=== PATIENT | male | born 1945 | race American Indian/Alaskan Native ===

== ENCOUNTER 2022-05-25 15:27 | Inpatient (IN) | payer SELFPAY ==
[~2022-05-25 15:27] MED LIST: SUCCINYLCHOLINE CHLORIDE 200 MG/10 ML INJ MDV ONE
[2022-05-25] MEDS ORDERED: HEPARIN 10,000 UNITS/10 ML VIAL ONE (15:38)
[2022-05-25] MEDS ORDERED: HEPARIN/NS 5000 UNIT/500ML 500 ML IR ONE (15:38)
[2022-05-25] MEDS ORDERED: VERAPAMIL 5 MG/2 ML INJ ONE (15:38)
[2022-05-25] MEDS ORDERED: LIDOCAINE (2%) 20 MG/1 ML VIAL 20 ML MDV INFILTRATI ONE (15:39)
[2022-05-25] MEDS ORDERED: NITROGLYCERIN SYRINGE 0 ML ONE (15:39)
--- NOTE | 2022-05-25 16:09 | XRay Report ---
CHEST 1 VIEW INDICATION / CLINICAL INFORMATION: Chest Pain STUDY TIME: 155 COMPARISON: None available. FINDINGS: SUPPORT DEVICES: None HEART / MEDIASTINUM: No significant abnormality. LUNGS / PLEURA: Very poor degree of inspiration. Calcified granuloma on the right. Mild linear atelec tasis versus scarring bilaterally, more on the right. No definite pneumonic infiltrates or effusions. No pneumothorax. ADDITIONAL FINDINGS: No significant additional findings. Signer Name: John Laguerre MD Signed: 05/25/2022 4:05 PM Workstation Name: [id number]
--- NOTE | 2022-05-25 16:18 | Consultation ---
History of Present Illness Consult date: 05/25/22 Requesting physician: TYSON JONES Consult reason: chest pain History of present illness: Patient is 77-year-old male with a reported past medical history of osteomyeloma(reportedly on Eliquis as an outpatient) who is brought in to the ED due to complaint of chest pain/AMS x3 hours. History taken from EMS due to patient mental status at time of interview. Per EMS patient woke up at 3 AM this morning stating he was not feeling well. Per report 3 hours ago patient suddenly developed crushing chest pain and then developed altered mental status. EMS was notified and patient transported to [facility] for further evaluation. Per EMS patient was having PVCs and bigeminy on monitor in route to hospital. Rhythm strip was transferred to the hospital with concern for STEMI. EKG was reviewed by on-call brand inspector and determined not to be STEMI. At time of interview patient remains with AMS and unable to obtain a ROS. Patient is previously unknown to our practice. Cardiology is consulted for chest pain. Past History Past Medical History: other (Unable to obtain, reported patient has history of osteomyeloma) Past Surgical History: Other (Unable to obtain) Social history: other (Unable to obtain) Family history: other (Unable to obtain) Medications and Allergies Allergies Allergy/AdvReac Type Severity Reaction Status Date / Time No Known Allergies Allergy Verified 05/25/22 16:04 Review of Systems ROS unobtainable: due to mental status Physical Examination Vital Signs Temp Pulse Resp Pulse Ox 98.6 F 66 16 93 05/25/22 16:02 05/25/22 16:02 05/25/22 16:02 05/25/22 16:02 General appearance: other (Altered mental status) Neck: Positive: trachea midline Cardiac: Positive: Reg Rate and Rhythm Lungs: Positive: Decreased Breath Sounds Neuro: Positive: Other (Unable to assess) Abdomen: Positive: Soft Skin: Positive: Other (Lesion on right lower extremity) Extremities: Absent: edema Results - Imaging and Cardiology Echo: pending EKG interpretations - Telemetry EKG Rhythm: Sinus Rhythm - EKG Sinus rhythms and dysrhythmias: sinus rhythm AV and intraventricular conduction: right bundle branch block Assessment and Plan Patient is 77-year-old male with a reported past medical history of osteomyeloma(reportedly on Eliquis as an outpatient) who is brought in to the ED due to complaint of chest pain/AMS x3 hours. AMS Chest pain/ACS? H/o Osteomyloma (anticoagulated on Eliquis?) Plan: EKG shows sinus rhythm with right bundle branch block no acute ischemic change. Troponins pending Rhythm strip sent by EMS and EKG done at [facility] was determined not to be a STEMI. No indication for immediate cardiac cath Further recommendations to follow pending hospital course and ED work up. Patient tentatively to be n.p.o. after midnight in case there is indication for cardiac intervention Echo pending Patient seen in conjunction with Dr. Hicks who agrees with plan of care - Patient Problems (1) AMS (altered mental status) Status: Acute (2) Chest pain Status: Acute
[2022-05-25] MEDS ORDERED: SODIUM CHLORIDE 0.9% 1000 ML 1,000 ML IV ONE ×3 (16:31→16:52)
[2022-05-25] MEDS ORDERED: SODIUM CHLORIDE 0.9% 1000 ML 2,000 ML ONE (16:32)
[2022-05-25 16:33] LABS: Calcium 9.2 mg/dL (8.4-10.2)
[2022-05-25 16:36] LABS: Mean Corpuscular HGB Conc 31 % (32-34); Platelet Count 125 K/mm3 (140-440); Red Blood Count 3.46 M/mm3 (3.65-5.03); Red Cell Distribution Width 17.9 % (13.2-15.2)
[2022-05-25 16:58] LABS: Hematocrit 38.4 % (35.5-45.6); Hemoglobin 11.8 gm/dl (11.8-15.2); Mean Corpuscular Volume 111 fl (84-94)
[2022-05-25 16:59] LABS: INR 1.52 (0.87-1.13)
[2022-05-25 17:00] LABS: Partial Thromboplastin Time 36.1 Sec. (24.2-36.6)
[2022-05-25] MEDS ORDERED: POTASSIUM CHLORIDE 10 MEQ 10 MEQ/100 ML BAG IV SCH (17:00)
[2022-05-25 17:49] LABS: Chol/HDL Ratio 1.91 %
[2022-05-25 17:53] LABS: Band Neutrophils # (Manual) 0.3 K/mm3; Basophils % (Manual) 0 % (0.0-1.8); Macrocytosis 2+; Myelocytes # (Manual) 0.3 K/mm3; Platelet Estimate Consistent w Auto; Total Cells Counted 100
--- NOTE | 2022-05-25 18:03 | Emergency Department Report ---
ED Chest Pain HPI - General Chief Complaint: Chest Pain Stated Complaint: STEMI Time Seen by Provider: 05/25/22 15:40 Source: EMS Mode of arrival: Stretcher Limitations: Altered Mental Status, Physical Limitation - History of Present Illness Initial Comments: Patient is a 77-year-old male brought in by EMS for suspected code STEMI. He reportedly woke up this morning not feeling well and later developed chest pain proximately 3 hours prior to arrival. Family states patient went unresponsive and defecated on himself. EMS noted ST elevations in the inferior leads concerning for STEMI. No medications given due to patient being obtunded. Severity scale (0 -10): 0 - Related Data Allergies Allergy/AdvReac Type Severity Reaction Status Date / Time No Known Allergies Allergy Verified 05/25/22 16:19 Heart Score - HEART Score History: Slightly suspicious EKG: Non-specific Age: > 65 Risk factors: 1-2 risk factors Troponin: 1-3x normal limit HEART Score: 5 - EKG Read Time Time EKG Completed: 12:00 (Unable to locate EKG. Times are not accurate) EKG Read Time: 12:05 (Unable to locate EKG. Times are not accurate) - Critical Actions Critical Actions: 4-6 pts:12-16.6% risk of adverse cardiac event. Should be admitted ED Review of Systems ROS: Stated complaint: STEMI Other details as noted in HPI Comment: Unobtainable due to pts medical conditions ED Physical Exam - General Limitations: Altered Mental Status, Physical Limitation General appearance: obtunded - Head Head exam: Present: atraumatic, normocephalic - Neck Neck exam: Present: normal inspection - Respiratory Respiratory exam: Present: normal lung sounds bilaterally. Absent: respiratory distress - Cardiovascular Cardiovascular Exam: Present: regular rate, normal rhythm, normal heart sounds - GI/Abdominal GI/Abdominal exam: Present: soft. Absent: distended - Neurological Exam Neurological exam: Present: altered - Skin Skin exam: Present: warm, dry, intact, normal color ED Course Vital Signs 05/25/22 05/25/22 05/25/22 15:33 15:46 16:00 Temperature Pulse Rate 72 77 77 Respiratory 18 22 17 Rate Blood Pressure 91/72 91/72 O2 Sat by Pulse Oximetry 05/25/22 05/25/22 16:02 16:16 Temperature 98.6 F Pulse Rate 66 67 Respiratory 16 22 Rate Blood Pressure 56/31 O2 Sat by Pulse 93 73 L Oximetry ED Medical Decision Making - Lab Data Result diagrams: 05/25/22 15:55 05/25/22 15:55 - EKG Data -: EKG Interpreted by Me EKG shows normal: sinus rhythm Rate: normal - EKG Data 05/25/22 18:01 Right bundle branch block - Radiology Data Radiology results: report reviewed Calcified granuloma on the right. Mild scarring versus atelectasis noted. No acute findings otherwise. - Medical Decision Making Laboratories are significant for troponin of 2.3, D-dimer 879, creatinine 2.7, GFR 23. Patient was moderately hypotensive on arrival and was started on IV fluids. Differential diagnosis of chest pain includes but not limited to NSTEMI, aortic dissection, AAA, PE. I discussed these concerns with and explained to her the risks versus benefits of administering IV contrast in setting of acute kidney injury to identify potentially life-threatening disease processes as mentioned above. consents to CTA. No acute PE, AAA or dissection noted on CTA chest abdomen or pelvis. Right femoral artery occlusion noted. He is currently on a Levophed infusion for refractory hypotension. Will admit to hospitalist, Critical care attestation.: If time is entered above; I have spent that time in minutes in the direct care of this critically ill patient, excluding procedure time. ED Disposition Clinical Impression: Altered mental status, Occlusion of right femoral artery, Metabolic acidosis, Non-ST elevation PR (NSTEMI) Disposition: ADMITTED INPATIENT Is pt being admited?: Yes Condition: Stable
[2022-05-25] MEDS ORDERED: KETAMINE 500 MG/5 ML VIAL MDV IV ONE (19:15)
--- NOTE | 2022-05-25 20:26 | Cat Scan Report ---
CTA CHEST, ABDOMEN, AND PELVIS WITHOUT AND WITH CONTRAST INDICATION / CLINICAL INFORMATION: Rule out dissection, PE, AAA 86 ml of [id number] . TECHNIQUE: Axial CT images were obtained through the chest, abdomen, and pelvis before and after injection of IV contrast. 3 plane MIP and/or 3D reconstructions were produced. All CT scans at this location are per formed using CT dose reduction for ALARA by means of automated exposure control. COMPARISON: None available. FINDINGS: Chest: The thoracic aorta appears normal in size without dissection. Mild atherosclerotic change in the desc ending thoracic aorta. Visualized pulmonary arteries appear normal. Increased interstitial prominence with interstitial opacities and densities in bilateral lungs. A few these areas are mildly nodular/r ounded. Calcified nodule in the right lung is noted. No dominant mediastinal or hilar adenopathy. No evidence for PTE. Abdomen pelvis: Mild atherosclerotic change at the origin of the celiac and celiac branches are patent. Atherosclerot ic change with some plaque is seen in the SMA however this is patent. Atherosclerotic change in bilat eral renal arteries. EMY is patent. Atherosclerotic change of lower abdominal aorta with common iliac artery calcifications and mild narrowing. After rn maternal child change throughout the internal/external iliac vessels. There is occlusion of the right proximal femoral artery. No dissection. Liver, spleen, adrenal glands, pancreas appears normal. Gallbladder appears normal. Slightly complex left renal cyst. Right renal cyst is noted. There is thickening within the sigmoid colon and into the rectum. IMPRESSION: 1. No evidence for PTE. Extensive atherosclerotic change throughout the abdominal aorta and branches as described above. 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 No dissection is seen. 2. Thickening of the sigmoid colon into the rectum. Findings could represent colitis, nonspecific. Cl inical correlation and follow-up is recommended. Follow-up colonoscopy recommended. 3. Bilateral renal cysts. Slightly complex left renal cyst. 4. Diffuse osteopenia with mild bony changes throughout. 5. Increased interstitial prominence with interstitial opacities in bilateral lungs. Follow-up recomm ended. Lower lung atelectasis. Signer Name: Khanh Man MD Signed: 05/25/2022 8:22 PM Workstation Name: [id number]
--- NOTE | 2022-05-25 20:26 | Cat Scan Report ---
CTA CHEST, ABDOMEN, AND PELVIS WITHOUT AND WITH CONTRAST INDICATION / CLINICAL INFORMATION: Rule out dissection, PE, AAA 86 ml of [id number] . TECHNIQUE: Axial CT images were obtained through the chest, abdomen, and pelvis before and after injection of IV contrast. 3 plane MIP and/or 3D reconstructions were produced. All CT scans at this location are per formed using CT dose reduction for ALARA by means of automated exposure control. COMPARISON: None available. FINDINGS: Chest: The thoracic aorta appears normal in size without dissection. Mild atherosclerotic change in the desc ending thoracic aorta. Visualized pulmonary arteries appear normal. Increased interstitial prominence with interstitial opacities and densities in bilateral lungs. A few these areas are mildly nodular/r ounded. Calcified nodule in the right lung is noted. No dominant mediastinal or hilar adenopathy. No evidence for PTE. Abdomen pelvis: Mild atherosclerotic change at the origin of the celiac and celiac branches are patent. Atherosclerot ic change with some plaque is seen in the SMA however this is patent. Atherosclerotic change in bilat eral renal arteries. EMY is patent. Atherosclerotic change of lower abdominal aorta with common iliac artery calcifications and mild narrowing. After oyster culler change throughout the internal/external iliac vessels. There is occlusion of the right proximal femoral artery. No dissection. Liver, spleen, adrenal glands, pancreas appears normal. Gallbladder appears normal. Slightly complex left renal cyst. Right renal cyst is noted. There is thickening within the sigmoid colon and into the rectum. IMPRESSION: 1. No evidence for PTE. Extensive atherosclerotic change throughout the abdominal aorta and branches as described above. 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 No dissection is seen. 2. Thickening of the sigmoid colon into the rectum. Findings could represent colitis, nonspecific. Cl inical correlation and follow-up is recommended. Follow-up colonoscopy recommended. 3. Bilateral renal cysts. Slightly complex left renal cyst. 4. Diffuse osteopenia with mild bony changes throughout. 5. Increased interstitial prominence with interstitial opacities in bilateral lungs. Follow-up recomm ended. Lower lung atelectasis. Signer Name: Khanh Man MD Signed: 05/25/2022 8:22 PM Workstation Name: [id number]
[2022-05-25] MEDS ORDERED: PIPERACILLIN/TAZOBACTAM 3.375 3.375 GM/50 ML BAG IV ONE (20:40)
--- NOTE | 2022-05-25 20:43 | Cat Scan Report ---
CT head/brain wo con INDICATION / CLINICAL INFORMATION: 77 years Male; AMS. TECHNIQUE: Routine CT head without contrast. All CT scans at this location are performed using CT dos e reduction for ALARA by means of automated exposure control. COMPARISON: None. FINDINGS: BRAIN / INTRACRANIAL CONTENTS: The motion significantly degrades the image quality despite multiple r epeat imaging. There is an septal malacia involving right frontal lobe most consistent with old infar ct at. This mild cerebral atrophy. The ventricular system appears correspondingly appropriate in size and configuration. There is no gross CT evidence of acute intracranial hemorrhage or significant mas s effect. ORBITS: No significant abnormality of visualized orbits. SINUSES / MASTOIDS: No significant abnormality in the visualized paranasal sinuses or mastoid air ronaldo ls. CRANIOCERVICAL JUNCTION: No significant abnormality. ADDITIONAL FINDINGS: None. IMPRESSION: 1. The study is significantly limited by motion. However, there is encephalomalacia involving right f rontal lobe most consistent with old infarct. 2. There is no gross CT evidence of acute intracranial hemorrhage. Signer Name: Timo Baez MD Signed: 05/25/2022 8:38 PM Workstation Name: [id number]
[2022-05-25] MEDS ORDERED: INSULIN REGULAR, HUMAN 100 UNITS/1 ML IV ONE (20:49)
[2022-05-25] MEDS ORDERED: DEXTROSE 50% IN WATER (25GM) 50 ML SYRINGE IV PRN (21:25)
[2022-05-25] MEDS ORDERED: SODIUM CHLORIDE 0.9% 1000 ML 1,000 ML ONE (21:32)
[2022-05-25] MEDS: NORepinephrine/NS 8 MG-250 ML 8 MG/250 ML INFUS..BTL IV SCH (21:38)
[2022-05-25] MEDS ORDERED: ACETAMINOPHEN 650 MG RECT SUPP PR PRN (21:45)
[2022-05-25] MEDS ORDERED: MORPHINE 4 MG/1 ML INJ IV PRN ×2 (21:45)
[2022-05-25] MEDS ORDERED: MORPHINE 2 MG/1 ML INJ IV PRN (21:45)
[2022-05-25] MEDS ORDERED: ONDANSETRON 4 MG/2 ML INJ IV PRN (21:45)
[2022-05-25] MEDS ORDERED: traMADol 50 MG TAB PO PRN (21:45)
[2022-05-25] MEDS ORDERED: ACETAMINOPHEN 325 MG TAB PO PRN (21:45)
[2022-05-25] MEDS ORDERED: HEPARIN 10,000 UNITS/10 ML VIAL IV PRN (21:45)
[2022-05-25] MEDS ORDERED: HEPARIN 10,000 UNITS/10 ML VIAL IV ONE ×2 (21:45→22:10)
[2022-05-25] MEDS ORDERED: SODIUM CHLORIDE 0.9% 1000 ML 1,000 ML IV SCH (21:45)
[2022-05-25] MEDS ORDERED: MAGNESIUM HYDROXIDE (MOM) ORAL LIQD UDC PO PRN (21:45)
[2022-05-25] MEDS ORDERED: NITROGLYCERIN 0.4 MG TAB SUBL SL PRN (21:45)
[2022-05-25] MEDS ORDERED: HEPARIN/ 0.45% NACL DRIP 25,000 UNIT/500 ML BAG IV SCH (22:00)
[2022-05-25] MEDS: INSULIN REGULAR, HUMAN 100 UNITS in SODIUM CHLORIDE 0.9% 99 ML IV SCH (22:04)
--- NOTE | 2022-05-25 22:06 | History and Physical Report ---
History of Present Illness Date of examination: 05/25/22 Date of admission: 05/25/2022 Chief complaint: Chest Pain History of present illness: 27-year-old male with unknown past medical history brought in by EMS today with complaints of chest pain about 3 hours prior to arrival in the emergency room. Family indicates that patient had fecal incontinence and became unresponsive. EMS had noted that there were concerns for ST elevation DC on the inferior leads. EKG was said to have been discussed with the on-call slurry tank operator and a repeat EKG did not show STEMI. Most of the history was obtained from the ER staff as family members were not available. Patient unable to give any history at this time as he is obtunded. Further work-up reveals that patient is in DKA. He also had hypokalemia for which she has received IV potassium. Patient being admitted into the intensive care unit on insulin drip and IV fluid. Past History Past Medical History: other (Unable to obtain, reported patient has history of osteomyeloma) Past Surgical History: Other (Unable to obtain) Social history: other (Unable to obtain) Family history: other (Unable to obtain) Medications and Allergies Allergies Allergy/AdvReac Type Severity Reaction Status Date / Time No Known Allergies Allergy Verified 05/25/22 16:19 Active Meds: Active Medications Acetaminophen (Acetaminophen 325 Mg Tab) 650 mg PO Q6H PRN PRN Reason: Pain, Mild (1-3) Acetaminophen (Acetaminophen 650 Mg Rect Supp) 650 mg UT Q6H PRN PRN Reason: Pain MILD(1-3)/Fever >100.5/[place] Aspirin (Aspirin Ec 325 Mg Tab) 325 mg PO QDAY WILLIAM Dextrose (Dextrose 50% In Water (25gm) 50 Ml Syringe) 0 ml IV Q30MIN PRN; Protocol PRN Reason: Hypoglycemia Heparin Sodium (Porcine) (Heparin 10,000 Units/10 Ml Vial) 4,800 unit 60 unit /kg (4800 unit) IV ONCE ONE Stop: 05/25/22 21:46 Heparin Sodium (Porcine) (Heparin 10,000 Units/10 Ml Vial) 3,200 unit 40 unit/kg (3200 unit) IV Q6H PRN PRN Reason: Anti-Xa Assay < 0.1 units/ml NORepinephrine/NS 8 MG-250 ML (Norepinephrine/Ns 8 Mg-250 Ml (Double Conc)) 8 mg in 250 mls @ 3.75 mls/hr IV TITRATE WILLIAM; Protocol Insulin Human Regular 100 (units/ Sodium Chloride) 100 mls @ 7 mls/hr IV TITR WILLIAM; Protocol Potassium Chloride/Dextrose/Sod Cl (D5w/0.45% Nacl/Kcl 20 Meq) 20 meq in 1,000 mls @ 125 mls/hr IV DIRECT WILLIAM Sodium Chloride (Nacl 0.9% 1000 Ml) 1,000 mls @ 150 mls/hr IV DIRECT WILLIAM Heparin Sodium/Sodium Chloride (Heparin/ 0.45% Nacl-25,000 Unit/500 Ml) 25,000 unit in 500 mls @ 23.814 mls/hr IV TITRATE WILLIAM; Protocol Vasopressin 20 unit/ Sodium (Chloride) 101 mls @ 9.09 mls/hr IV TITR WILLIAM; Protocol Magnesium Hydroxide (Magnesium Hydroxide (Mom) Oral Liqd Udc) 30 ml PO Q4H PRN PRN Reason: Constipation Morphine Sulfate (Morphine 2 Mg/1 Ml Inj) 2 mg IV Q4H PRN PRN Reason: Pain, Moderate (4-6) Morphine Sulfate (Morphine 4 Mg/1 Ml Inj) 4 mg IV Q4H PRN PRN Reason: Pain , Severe (7-10) Morphine Sulfate (Morphine 4 Mg/1 Ml Inj) 2 mg IV Q5MIN PRN PRN Reason: Chest Pain unrelieved by NTG Nitroglycerin (Nitroglycerin 0.4 Mg Tab Subl) 0.4 mg SL Q5M PRN PRN Reason: Chest Pain Ondansetron HCl (Ondansetron 4 Mg/2 Ml Inj) 4 mg IV Q8H PRN PRN Reason: Nausea And Vomiting Sodium Chloride (Sodium Chloride 0.9% 10 Ml Flush Syringe) 10 ml IV BID WILLIAM Sodium Chloride (Sodium Chloride 0.9% 10 Ml Flush Syringe) 10 ml IV PRN PRN PRN Reason: LINE FLUSH Sodium Chloride (Sodium Chloride 0.9% 10 Ml Flush Syringe) 10 ml IV PRN PRN PRN Reason: LINE FLUSH Tramadol HCl (Tramadol 50 Mg Tab) 50 mg PO Q6H PRN PRN Reason: Pain, Moderate (4-6) Review of Systems ROS unobtainable: due to endotracheal tube Exam - Constitutional Vitals: Temp Pulse Resp BP Pulse Ox 98.6 F 63 10 L 69/24 61 L 05/25/22 16:02 05/25/22 21:46 05/25/22 21:46 05/25/22 21:46 05/25/22 21:46 General appearance: Present: well-nourished, other (Intubated and Sedated) - EENT Eyes: Present: PERRL, EOM intact. Absent: scleral icterus ENT: hearing intact, clear oral mucosa, dentition normal - Neck Neck: Present: supple, normal ROM - Respiratory Respiratory effort: normal Respiratory: bilateral: CTA - Cardiovascular Rhythm: regular Heart Sounds: Present: S1 & S2. Absent: gallop, systolic murmur, diastolic murmur, rub, click - Extremities Extremities: no ischemia, pulses intact, pulses symmetrical, No edema, normal temperature, normal color, Full ROM Peripheral Pulses: within normal limits - Abdominal General gastrointestinal: Present: soft, non-tender, non-distended, normal bowel sounds - Integumentary Integumentary: Present: clear, warm, dry, normal turgor. Absent: rash - Psychiatric Psychiatric: cooperative - Neurologic Neurologic: CNII-XII intact, no focal deficits, moves all extremities, other (Intubated and Sedated ) HEART Score - HEART Score Troponin: Troponin T 0.232 ng/mL (0.00-0.029) H* 05/25/22 Unknown Results - Labs CBC & Chem 7: 05/25/22 22:38 05/26/22 05:55 Labs: Abnormal lab results 05/25/22 05/25/22 05/25/22 Range/Units 15:55 15:55 15:55 RBC 3.46 L (3.65-5.03) M/mm3 MCV 111 H (84-94) fl MCH 34 H (28-32) pg MCHC 31 L (32-34) % RDW 17.9 H (13.2-15.2) % Plt Count 125 L (140-440) K/mm3 Lymphocytes # (Manual) 1.1 L (1.2-5.4) K/mm3 PT 20.2 H (12.2-14.9) Sec. INR 1.52 H (0.87-1.13) D-Dimer 879.09 H (0-234) ng/mlDDU Sodium 136 L (137-145) mmol/L Chloride 88.6 L (98-107) mmol/L Carbon Dioxide 14 L (22-30) mmol/L BUN 47 H (9-20) mg/dL Creatinine 2.7 H (0.8-1.3) mg/dL Glucose 418 H (75-100) mg/dL Magnesium (1.7-2.3) mg/dL AST 57 H (5-40) units/L Troponin T 0.230 H* (0.00-0.029) ng/mL Total Protein 4.7 L (6.3-8.2) g/dL Albumin 3.0 L (3.9-5) g/dL HDL Cholesterol 95 H (40-59) mg/dL 05/25/22 05/25/22 Range/Units 17:59 Unknown RBC (3.65-5.03) M/mm3 MCV (84-94) fl MCH (28-32) pg MCHC (32-34) % RDW (13.2-15.2) % Plt Count (140-440) K/mm3 Lymphocytes # (Manual) (1.2-5.4) K/mm3 PT (12.2-14.9) Sec. INR (0.87-1.13) D-Dimer (0-234) ng/mlDDU Sodium (137-145) mmol/L Chloride (98-107) mmol/L Carbon Dioxide (22-30) mmol/L BUN (9-20) mg/dL Creatinine (0.8-1.3) mg/dL Glucose (75-100) mg/dL Magnesium 5.10 H (1.7-2.3) mg/dL AST (5-40) units/L Troponin T 0.232 H* (0.00-0.029) ng/mL Total Protein (6.3-8.2) g/dL Albumin (3.9-5) g/dL HDL Cholesterol (40-59) mg/dL Assessment and Plan Assessment: 1. Chest pain 2. DKA 3. Hypokalemia 4. Altered mental status Plan: 1. Patient intubated and sedated 2. Patient placed on insulin drip and IV fluid. We will monitor blood glucose. 3. Potassium will be repleted and will monitor chemistry. 4. Will await further evaluation and recommendations from cardiology. DVT prophylaxis: Subcutaneous heparin CODE STATUS: Full code
--- NOTE | 2022-05-25 22:13 | XRay Report ---
CHEST 1 VIEW 05/25/2022 9:06 PM INDICATION / CLINICAL INFORMATION: POST INTUBATION. COMPARISON: One view of the chest from earlier today. FINDINGS: SUPPORT DEVICES: An ET tube has been placed and terminates 3.9 cm above the francisco. A right internal jugular CVL has also been placed that terminates over the cavoatrial junction. An esophagogastric tub e terminates in the stomach. HEART / MEDIASTINUM: Stable. LUNGS / PLEURA: Lung volumes have increased with increased bilateral pulmonary opacities. No signific ant pleural effusion. No pneumothorax. ADDITIONAL FINDINGS: No significant additional findings. IMPRESSION: 1. Satisfactory positioning of support lines/tubes as above. 2. Increased bilateral pulmonary opacities could represent atelectasis or pneumonia. Signer Name: Kip Boogie MD Signed: 05/25/2022 10:09 PM Workstation Name: [id number]
[2022-05-25] MEDS: VASOPRESSIN 20 UNIT in SODIUM CHLORIDE 0.9% 100 ML IV SCH (22:24)
[2022-05-25] MEDS: D5W/0.45% NACL/KCL 20 MEQ 20 MEQ/1,000 ML BAG IV SCH (23:00)
[2022-05-25 23:26] LABS: Hematocrit 40.5 % (35.5-45.6); Hemoglobin 11.5 gm/dl (11.8-15.2)
[2022-05-25] MEDS ORDERED: DOPamine 800 MG/D5W 250ML 800 MG/250 ML BAG IV ONE (23:26)
[2022-05-25] MEDS: DOPamine 800 MG/D5W 250ML 800 MG/250 ML BAG IV SCH (23:30)
[2022-05-26 00:02] LABS: Calcium 8.2 mg/dL (8.4-10.2)
[2022-05-26 00:15] LABS: ABG Base Excess -18.2 mmol/L (-2.0-3.0); ABG HCO3 9.4 mmol/L (20.0-26.0); ABG Methemoglobin 0.2 % (0.0-1.5); ABG Oxygen Saturation 98.8 % (95.0-99.0); ABG PCO2 28.2 mm Hg; ABG PO2 171.4 mm Hg (80.0-90.0)
[2022-05-26 00:23] LABS: ABG PH 7.141 pH Units (7.350-7.450)
[2022-05-26 00:34] LABS: INR 5.34 (0.87-1.13); Partial Thromboplastin Time 70.4 Sec. (24.2-36.6)
[2022-05-26] MEDS ORDERED: SODIUM BICARB 8.4% 50 MEQ/50 ML SYRINGE IV ONE ×7 (01:09→22:09)
[2022-05-26] MEDS: NORepinephrine/NS 8 MG-250 ML 8 MG/250 ML INFUS..BTL IV SCH ×6 (01:45→22:54)
[2022-05-26 01:57] LABS: Calcium 7.5 mg/dL (8.4-10.2)
[2022-05-26] MEDS ORDERED: REGADENOSON 0.4 MG/5 ML INJ IV ONE (07:16)
[2022-05-26] MEDS: D5W/0.45% NACL/KCL 20 MEQ 20 MEQ/1,000 ML BAG IV SCH (07:17)
--- NOTE | 2022-05-26 08:49 | Consultation ---
History of Present Illness Consult date: 05/26/22 Requesting physician: SILVANA CRUZ Reason for consult: other (Resp failure on MVS, Cardiogenic-septic shock, severe metabolic acidosis, MOIZ) History of present illness: This is a 77-year-old male with known past medical history of DM, osteomyeloma (being treated at [facility]), chronic right femoral artery occlusion, was on AC at home initially admitted for chest pain, metabolic acidosis, and DKA. Patient became unresponsive while in the ED requiring ventilatory support and now on multiple pressors. Hospital Course to Date: 05/26: Patient remains encephalopathic and on the vent. Remains on 3 pressors, hypotermic, and leukopenic, with severe metabolic acidosis. COVID PRC also came back positive. Will panculture, sodium bcarb gtt, and empiric IV antibiotics were initiated. CRP and procal pending. Heparin gtt on hold due to worsen thrombocytopenia and elevated INR, no s/s of any active bleeding. 2D echo pending, awaiting final recommendations. Patient remains on insulin gtt per DKA protocol. Renal function continues to worsen, continue current IVF hydration. Past History Past Medical History: other (Unable to obtain, reported patient has history of osteomyeloma) Past Surgical History: Other (Unable to obtain) Social history: other (Unable to obtain) Family history: other (Unable to obtain) Medications and Allergies Allergies Allergy/AdvReac Type Severity Reaction Status Date / Time No Known Allergies Allergy Verified 05/25/22 16:19 Active Meds: Active Medications Acetaminophen (Acetaminophen 325 Mg Tab) 650 mg PO Q6H PRN PRN Reason: Pain, Mild (1-3) Acetaminophen (Acetaminophen 650 Mg Rect Supp) 650 mg PA Q6H PRN PRN Reason: Pain MILD(1-3)/Fever >100.5/[place] Aspirin (Aspirin Ec 325 Mg Tab) 325 mg PO QDAY WILLIAM Dextrose (Dextrose 50% In Water (25gm) 50 Ml Syringe) 0 ml IV Q30MIN PRN; Protocol PRN Reason: Hypoglycemia Heparin Sodium (Porcine) (Heparin 10,000 Units/10 Ml Vial) 3,200 unit 40 unit/kg (3200 unit) IV Q6H PRN PRN Reason: Anti-Xa Assay < 0.1 units/ml NORepinephrine/NS 8 MG-250 ML (Norepinephrine/Ns 8 Mg-250 Ml (Double Conc)) 8 mg in 250 mls @ 3.75 mls/hr IV TITRATE WILLIAM; Protocol Last Admin: 05/26/22 05:52 Dose: 30 mcg/min, 56.25 mls/hr Insulin Human Regular 100 (units/ Sodium Chloride) 100 mls @ 7 mls/hr IV TITR WILLIAM; Protocol Last Titration: 05/26/22 08:00 Dose: 4 units/hr, 4 mls/hr Potassium Chloride/Dextrose/Sod Cl (D5w/0.45% Nacl/Kcl 20 Meq) 20 meq in 1,000 mls @ 125 mls/hr IV DIRECT WILLIAM Last Admin: 05/26/22 07:17 Dose: 125 mls/hr Sodium Chloride (Nacl 0.9% 1000 Ml) 1,000 mls @ 150 mls/hr IV DIRECT WILLIAM Last Admin: 05/26/22 01:30 Dose: 150 mls/hr Heparin Sodium/Sodium Chloride (Heparin/ 0.45% Nacl-25,000 Unit/500 Ml) 25,000 unit in 500 mls @ 20 mls/hr IV TITRATE WILLIAM; Protocol Last Titration: 05/26/22 06:08 Dose: 800 units/hr, 16 mls/hr Vasopressin 20 unit/ Sodium (Chloride) 101 mls @ 9.09 mls/hr IV TITR WILLIAM; Protocol Last Admin: 05/25/22 22:24 Dose: 0.03 units/min, 9.09 mls/hr Dopamine HCl/Dextrose (Dopamine 800 Mg/D5w 250ml) 800 mg in 250 mls @ 2.977 mls/hr IV TITR WILLIAM; Protocol Last Titration: 05/26/22 01:00 Dose: 10 mcg/kg/min, 14.884 mls/hr Magnesium Hydroxide (Magnesium Hydroxide (Mom) Oral Liqd Udc) 30 ml PO Q4H PRN PRN Reason: Constipation Morphine Sulfate (Morphine 2 Mg/1 Ml Inj) 2 mg IV Q4H PRN PRN Reason: Pain, Moderate (4-6) Morphine Sulfate (Morphine 4 Mg/1 Ml Inj) 4 mg IV Q4H PRN PRN Reason: Pain , Severe (7-10) Morphine Sulfate (Morphine 4 Mg/1 Ml Inj) 2 mg IV Q5MIN PRN PRN Reason: Chest Pain unrelieved by NTG Nitroglycerin (Nitroglycerin 0.4 Mg Tab Subl) 0.4 mg SL Q5M PRN PRN Reason: Chest Pain Ondansetron HCl (Ondansetron 4 Mg/2 Ml Inj) 4 mg IV Q8H PRN PRN Reason: Nausea And Vomiting Sodium Chloride (Sodium Chloride 0.9% 10 Ml Flush Syringe) 10 ml IV BID WILLIAM Last Admin: 05/25/22 22:00 Dose: 10 ml Sodium Chloride (Sodium Chloride 0.9% 10 Ml Flush Syringe) 10 ml IV PRN PRN PRN Reason: LINE FLUSH Tramadol HCl (Tramadol 50 Mg Tab) 50 mg PO Q6H PRN PRN Reason: Pain, Moderate (4-6) Review of Systems ROS unobtainable: due to endotracheal tube, due to mental status Physical Examination Vital signs: Vital Signs Pulse Resp 72 18 05/25/22 15:33 05/25/22 15:33 General appearance: comatose, appears uncomfortable Eyes: non-icteric ENT: oropharynx moist Neck: supple, no lymphadenopathy, no JVD Effort: mildly labored Ascultation: Bilateral: diminished breath sounds, rhonchi Cardiovascular: regular rate and rhythm, other (S1,S2) Gastrointestinal: normoactive bowel sounds, non-tender, non-distended Extremities: no cyanosis, no edema, no ischemia or petechiae unable to assess Results - Laboratory Findings CBC and BMP: 05/27/22 03:30 05/27/22 03:30 ABG ABG pH 7.141 pH Units (7.350-7.450) L* 05/25/22 23:30 ABG pCO2 28.2 mm Hg 05/25/22 23:30 ABG pO2 171.4 mm Hg (80.0-90.0) H 05/25/22 23:30 ABG O2 Saturation 98.8 % (95.0-99.0) 05/25/22 23:30 PT/INR, D-dimer PT 56.8 Sec. (12.2-14.9) H 05/25/22 22:38 INR 5.34 (0.87-1.13) H* 05/25/22 22:38 D-Dimer 879.09 ng/mlDDU (0-234) H 05/25/22 15:55 Abnormal lab findings: Abnormal Labs 08/05/25/22 05/25/22 15:55 15:55 15:55 RBC 3.46 L Hgb MCV 111 H MCH 34 H MCHC 31 L RDW 17.9 H Plt Count 125 L Lymphocytes # (Manual) 1.1 L PT 20.2 H INR 1.52 H APTT D-Dimer 879.09 H Heparin Anti-Xa Level ABG pH ABG pO2 ABG HCO3 ABG Base Excess ABG Hemoglobin Sodium 136 L Potassium Chloride 88.6 L Carbon Dioxide 14 L BUN 47 H Creatinine 2.7 H Glucose 418 H POC Glucose Calcium Phosphorus Magnesium AST 57 H Troponin T 0.230 H* Total Protein 4.7 L Albumin 3.0 L HDL Cholesterol 95 H 05/25/22 05/25/22 05/25/22 17:59 22:38 22:38 RBC Hgb MCV MCH MCHC RDW Plt Count Lymphocytes # (Manual) PT INR APTT D-Dimer Heparin Anti-Xa Level ABG pH ABG pO2 ABG HCO3 ABG Base Excess ABG Hemoglobin Sodium Potassium Chloride Carbon Dioxide BUN Creatinine Glucose POC Glucose Calcium Phosphorus 12.00 H Magnesium 5.10 H 4.80 H AST Troponin T 0.232 H* Total Protein Albumin HDL Cholesterol 05/25/22 05/25/22 05/25/22 22:38 22:38 22:38 RBC Hgb 11.5 L MCV MCH MCHC RDW Plt Count 87 L Lymphocytes # (Manual) PT 56.8 H INR 5.34 H* APTT 70.4 H* D-Dimer Heparin Anti-Xa Level ABG pH ABG pO2 ABG HCO3 ABG Base Excess ABG Hemoglobin Sodium 135 L Potassium Chloride 95.9 L Carbon Dioxide 7 L* D BUN 46 H Creatinine 2.7 H Glucose 362 H POC Glucose Calcium 8.2 L Phosphorus Magnesium AST Troponin T Total Protein Albumin HDL Cholesterol 05/25/22 05/25/22 05/26/22 23:30 Unknown 01:09 RBC Hgb MCV MCH MCHC RDW Plt Count Lymphocytes # (Manual) PT INR APTT D-Dimer Heparin Anti-Xa Level ABG pH 7.141 L* ABG pO2 171.4 H ABG HCO3 9.4 L ABG Base Excess -18.2 L ABG Hemoglobin 10.4 L Sodium Potassium Chloride Carbon Dioxide BUN Creatinine Glucose POC Glucose 326 H Calcium Phosphorus Magnesium AST Troponin T 0.232 H* Total Protein Albumin HDL Cholesterol 05/26/22 05/26/22 05/26/22 01:15 02:30 03:15 RBC Hgb MCV MCH MCHC RDW Plt Count Lymphocytes # (Manual) PT INR APTT D-Dimer Heparin Anti-Xa Level ABG pH ABG pO2 ABG HCO3 ABG Base Excess ABG Hemoglobin Sodium 135 L Potassium Chloride 96.4 L Carbon Dioxide 11 L BUN 44 H Creatinine 2.6 H Glucose 381 H POC Glucose 335 H Calcium 7.5 L Phosphorus Magnesium AST Troponin T 0.827 H* D Total Protein Albumin HDL Cholesterol 05/26/22 05/26/22 05/26/22 03:15 03:48 04:48 RBC Hgb MCV MCH MCHC RDW Plt Count Lymphocytes # (Manual) PT INR APTT D-Dimer Heparin Anti-Xa Level 2.30 H ABG pH ABG pO2 ABG HCO3 ABG Base Excess ABG Hemoglobin Sodium Potassium Chloride Carbon Dioxide BUN Creatinine Glucose POC Glucose 319 H 309 H Calcium Phosphorus Magnesium AST Troponin T Total Protein Albumin HDL Cholesterol 05/26/22 05/26/22 05/26/22 05:55 06:02 06:04 RBC Hgb MCV MCH MCHC RDW Plt Count Lymphocytes # (Manual) PT INR APTT D-Dimer Heparin Anti-Xa Level ABG pH ABG pO2 ABG HCO3 ABG Base Excess ABG Hemoglobin Sodium 135 L Potassium 3.4 L Chloride 97.3 L Carbon Dioxide 13 L BUN 44 H Creatinine 2.8 H Glucose 223 H POC Glucose 215 H 226 H Calcium 8.0 L Phosphorus Magnesium AST Troponin T Total Protein Albumin HDL Cholesterol 05/26/22 07:07 RBC Hgb MCV MCH MCHC RDW Plt Count Lymphocytes # (Manual) PT INR APTT D-Dimer Heparin Anti-Xa Level ABG pH ABG pO2 ABG HCO3 ABG Base Excess ABG Hemoglobin Sodium Potassium Chloride Carbon Dioxide BUN Creatinine Glucose POC Glucose 208 H Calcium Phosphorus Magnesium AST Troponin T Total Protein Albumin HDL Cholesterol - Diagnostic Findings Chest x-ray: image reviewed Assessment and Plan Septic-Cardiogenic shock with MODS Acute Hypoxic Respiratory Failure/ COVID 19 Infection on MVS Possible Bilateral Pneumonia NSTEMI type 2 Urinary Tract Infection(UTI) Acute Metabolic Encephalopathy Acute Kidney Injury (MOIZ) most likely ATN Hypokalemia Metabolic Acidosis Chronic Right Femoral Artery Occlusion Coagulopathy- Elevated INR/Thrombocytopenia Diabetic Ketoacidosis(DKA) Osteomyeloma - Chronic, diagnosed over 2 years - Currently receiving treatment at [facility] DVT-Stress ulcer Prophylaxis - PPI- Pepcid - SCDs to bilateral lower extremities while in bed Continue with vasopressor support and bicarbonate infusion Wean vasopressor support, keep MAP>65 VAP bundle addressed, aspiration precautions HOB >40 ABG, CXR ABGs- severe metabolic acidosis, minute ventilation adjusted for better gas- exchange, follow up ABG ordered IV abx and IV steroids for COVID and CAP ID following Follow up cultures and adjust antibiotics, de-escalate as clinically indicated Insulin infusion per KA protocol. Serial BMPs Calderon catheter in this critically ill patient in multi-pressor shock and MOIZ Avoid nephrotoxins, adjust all medications for GFR/CrCL Follow up 2D echocardiogram Mobility, off loading as toleated, prevent pressure ulcers -Currently not on any sedation.PRN Fentanyl for pain management -Avoid hypoglycemia. -Supportive transfusions as clinically indicated to keep HgB >7g/dL -Monitor for bleeding, send HIT panel. Stop heparin infusion -COVID isolation precautions per facility protocol. CONDITION: CRITICAL PROGNOSIS- GUARDED TO GRAVE CODE STATUS: FULL CODE The high probability of a clinically significant, sudden or life threatening deterioration of the [multiple] system(s) required my full and direct attention, intervention and personal management. The aggregate critical care time was [78 ] minutes. This time is in addition to time spent performing reported procedures
[2022-05-26] MEDS ORDERED: MINERAL OIL/PETROLATUM, WHITE OPHTH OINT 3.5 GM OU PRN (09:04)
[2022-05-26] MEDS ORDERED: LIP THERAPY VASELINE TP PRN (09:04)
[2022-05-26] MEDS ORDERED: SODIUM CHLORIDE 0.9% 500 ML 500 ML IV SCH (09:30)
[2022-05-26] MEDS: VASOPRESSIN 20 UNIT in SODIUM CHLORIDE 0.9% 100 ML IV SCH ×2 (09:44→19:17)
[2022-05-26 10:00] LABS: ABG Base Excess -15.5 mmol/L (-2.0-3.0); ABG HCO3 10.7 mmol/L (20.0-26.0); ABG Methemoglobin 0.1 % (0.0-1.5); ABG Oxygen Saturation 86.2 % (95.0-99.0); ABG PCO2 26.8 mm Hg; ABG PH 7.219 pH Units (7.350-7.450); ABG PO2 60.3 mm Hg (80.0-90.0)
[2022-05-26] MEDS ORDERED: ASPIRIN EC 325 MG TAB PO SCH (10:00)
[2022-05-26] MEDS ORDERED: FAMOTIDINE 20 MG/2 ML INJ IV SCH (10:00)
--- NOTE | 2022-05-26 10:03 | XRay Report ---
ABDOMEN 1 VIEW INDICATION / CLINICAL INFORMATION: OGT placement verification. COMPARISON: CTA from 05/25/2022. FINDINGS: Enteric catheter tip projects over the stomach with side port located past the GE junction. Otherwise unchanged. Signer Name: Chato Levi MD Signed: 05/26/2022 9:58 AM Workstation Name: [employer]
--- NOTE | 2022-05-26 10:05 | XRay Report ---
CHEST 1 VIEW 05/26/2022 8:57 AM INDICATION / CLINICAL INFORMATION: Follow up respiratory failure. COMPARISON: None available. FINDINGS: SUPPORT DEVICES: ET tube is satisfactory in position. Right IJ line tip overlies distal SVC. NG tube extends within the stomach HEART / MEDIASTINUM: No significant abnormality. LUNGS / PLEURA: Bilateral pulmonary opacities persist No pneumothorax. Signer Name: Khanh Man MD Signed: 05/26/2022 10:01 AM Workstation Name: [email or web address]
[2022-05-26] MEDS: SENNOSIDES/DOCUSATE SODIUM 8.6/50 MG TAB FEEDTUBE SCH ×2 (10:41→22:43)
[2022-05-26] MEDS: SODIUM BICARBONATE 150 MEQ in DEXTROSE 5% IN WATER 1,000 ML IV SCH ×2 (10:44→20:06)
[2022-05-26] MEDS: INSULIN REGULAR, HUMAN 100 UNITS in SODIUM CHLORIDE 0.9% 99 ML IV SCH (10:51)
[2022-05-26] MEDS ORDERED: dexAMETHasone 4 MG/ML VIAL IV SCH (11:00)
[2022-05-26 11:24] LABS: Hematocrit 34.1 % (35.5-45.6); Mean Corpuscular HGB Conc 32 % (32-34); Mean Corpuscular Volume 106 fl (84-94); Red Blood Count 3.22 M/mm3 (3.65-5.03); Red Cell Distribution Width 17.2 % (13.2-15.2)
[2022-05-26 11:35] LABS: ABG Base Excess -14.9 mmol/L (-2.0-3.0); ABG HCO3 10.2 mmol/L (20.0-26.0); ABG Oxygen Saturation 95.3 % (95.0-99.0); ABG PCO2 22.9 mm Hg; ABG PH 7.267 pH Units (7.350-7.450); ABG PO2 83.8 mm Hg (80.0-90.0)
[2022-05-26 11:40] LABS: Calcium 7.4 mg/dL (8.4-10.2)
--- NOTE | 2022-05-26 11:58 | Progress Note ---
Assessment and Plan Patient is 77-year-old male with a reported past medical history of osteomyeloma(reportedly on Eliquis as an outpatient) who is brought in to the ED due to complaint of chest pain/AMS x3 hours. AMS Sepsis-requiring multiple pressors Metabolic acidosis NSTEMI suspect type II COVID-19-ID following Acute respiratory failure-pulmonology following MOIZ Hypermagnesemia Hyperphosphatemia Hyperglycemia H/o Osteomyloma (anticoagulated on Eliquis?) Plan: EKG shows sinus rhythm with right bundle branch block no acute ischemic change. Troponins noted to be elevated suspect NSTEMI type II in setting of sepsis and MOIZ Rhythm strip sent by EMS and EKG done at [facility] was determined not to be a STEMI. Agree with Heparin drip being held due to patient's elevated INR and thrombocytopenia No beta-blockers due to patient requiring multiple pressors. Recommend weaning as tolerated Electrolyte management per primary team Echo pending Patient seen in conjunction with Dr. Hicks who agrees with plan of care - Patient Problems (1) AMS (altered mental status) Current Visit: Yes Status: Acute (2) Chest pain Current Visit: No Status: Acute (3) MOIZ (acute kidney injury) Current Visit: Yes Status: Acute (4) COVID-19 Current Visit: Yes Status: Acute (5) Hyperglycemia Current Visit: Yes Status: Acute (6) Sepsis Current Visit: Yes Status: Acute (7) Hypermagnesemia Current Visit: Yes Status: Acute (8) Hyperphosphatemia Current Visit: Yes Status: Acute (9) Metabolic acidosis Current Visit: Yes Status: Acute (10) Non-ST elevation DE (NSTEMI) Current Visit: Yes Status: Acute Subjective Date of service: 05/26/22 Principal diagnosis: Sepsis, altered mental status, NSTEMI suspect type II Interval history: Patient transferred to ICU. Patient was intubated overnight. Sinus on monitor Objective Vital Signs Temp Pulse Pulse Resp BP Pulse Ox 05/26/22 10:20 80 30 H 88/52 57 L 05/26/22 10:10 80 25 H 65/32 85 05/26/22 10:00 79 30 H 80/41 05/26/22 09:50 77 30 H 93/53 05/26/22 09:40 76 30 H 93/53 05/26/22 09:30 79 30 H 73/54 99 05/26/22 09:20 81 30 H 62/41 05/26/22 09:10 81 29 H 77/44 98 05/26/22 09:00 81 30 H 82/65 100 05/26/22 08:50 81 21 82/65 91 05/26/22 08:40 80 30 H 77/44 87 05/26/22 08:30 79 26 H 57/36 05/26/22 08:20 81 30 H 86/41 71 L 05/26/22 08:10 80 30 H 85/52 79 L 05/26/22 08:00 97.7 F 80 80 30 H 85/52 90 05/26/22 07:50 84 30 H 89/54 05/26/22 07:44 80 89/54 94 05/26/22 07:40 80 30 H 91/53 05/26/22 07:30 79 30 H 91/53 85 05/26/22 07:27 97.5 F L 05/26/22 07:20 80 30 H 84/48 88 05/26/22 07:10 79 30 H 85/52 77 L 05/26/22 07:00 78 30 H 86/49 85 05/26/22 06:50 78 30 H 86/49 93 05/26/22 06:40 77 30 H 80/52 92 05/26/22 06:30 76 30 H 80/52 93 05/26/22 06:20 75 30 H 85/53 87 05/26/22 06:10 77 30 H 82/51 93 05/26/22 06:00 76 30 H 82/51 92 05/26/22 05:50 77 30 H 85/43 94 05/26/22 05:40 72 30 H 85/51 93 05/26/22 05:30 76 30 H 86/52 94 05/26/22 05:20 76 30 H 85/51 94 05/26/22 05:10 76 30 H 91/53 93 05/26/22 05:00 75 76 30 H 91/53 95 05/26/22 04:50 76 30 H 93/41 93 05/26/22 04:40 74 30 H 92/59 100 05/26/22 04:30 76 30 H 92/59 100 05/26/22 04:20 73 30 H 104/71 100 05/26/22 04:10 73 30 H 90/51 98 08/30/22 04:00 95.2 F L 75 30 H 92/59 99 05/26/22 03:59 95 F L 05/26/22 03:50 73 30 H 95/42 05/26/22 03:40 74 30 H 99/37 95 05/26/22 03:30 73 30 H 99/37 95 05/26/22 03:20 75 30 H 98/47 96 05/26/22 03:10 77 30 H 107/35 95 05/26/22 03:00 73 30 H 107/35 96 05/26/22 02:50 72 30 H 98/26 95 05/26/22 02:40 73 30 H 104/26 92 05/26/22 02:30 72 30 H 106/39 97 05/26/22 02:20 72 30 H 106/39 96 05/26/22 02:10 76 30 H 100/45 94 05/26/22 02:00 72 30 H 100/45 96 05/26/22 01:50 74 30 H 111/37 95 05/26/22 01:40 74 30 H 96/44 96 05/26/22 01:30 95 F L 74 30 H 96/44 96 05/26/22 01:22 94.8 F L 05/26/22 01:20 75 30 H 103/50 81 L 05/26/22 01:10 73 30 H 97 05/26/22 01:05 74 100 05/26/22 01:00 109 H 16 05/26/22 00:15 75 118/31 05/26/22 00:04 74 112/28 05/26/22 00:00 73 97/26 05/25/22 23:59 73 97/26 98 05/25/22 23:45 68 82/28 05/25/22 23:30 64 75/42 44 L 05/25/22 23:16 65 92/45 05/25/22 23:00 63 88/42 05/25/22 22:49 63 83/36 98 05/25/22 22:45 64 91/41 05/25/22 22:30 63 77/30 05/25/22 22:16 65 95/31 05/25/22 22:00 73 11 L 51/30 05/25/22 21:46 63 10 L 69/24 61 L 05/25/22 21:30 53/22 77 L 05/25/22 21:16 51/25 79 L 05/25/22 21:00 56/28 75 L 05/25/22 20:46 58/23 81 L 05/25/22 20:30 58/32 82 L 05/25/22 20:16 48/31 80 L 05/25/22 20:00 72/12 85 05/25/22 19:54 149/112 05/25/22 19:00 137/80 96 05/25/22 18:46 129/72 70 L 05/25/22 18:30 137/80 81 L 05/25/22 18:16 129/72 96 05/25/22 18:02 66/26 91 05/25/22 17:46 66/26 61 L 05/25/22 17:30 47/31 88 05/25/22 17:15 68 18 72/16 71 L 05/25/22 17:00 71 22 63/36 54 L 05/25/22 16:46 67 17 63/36 87 05/25/22 16:30 68 19 64/32 77 L 05/25/22 16:16 67 22 56/31 73 L 05/25/22 16:02 98.6 F 66 16 93 05/25/22 16:00 77 17 91/72 05/25/22 15:46 77 22 91/72 05/25/22 15:33 72 18 - Physical Examination General: Other (Intubated) HEENT: Positive: PERRL Neck: Positive: trachea midline Cardiac: Positive: Reg Rate and Rhythm Lungs: Positive: Ventilated Respirations Neuro: Positive: Other (Unable to assess) Abdomen: Positive: Soft Skin: Positive: Other (Lesion on right lower extremity). Negative: Rash Extremities: Present: upper extr. pulses. Absent: edema - Labs and Meds Cardiac Enzymes 05/25/22 05/26/22 Range/Units 15:55 11:12 AST 57 H (5-40) units/L Lactate Dehydrogenase 639 H (91-180) units/L Coagulation 05/25/22 05/25/22 Range/Units 15:55 22:38 PT 20.2 H 56.8 H (12.2-14.9) Sec. INR 1.52 H 5.34 H* (0.87-1.13) APTT 36.1 70.4 H* (24.2-36.6) Sec. Lipids 05/25/22 Range/Units 15:55 Triglycerides 121 (2-149) mg/dL Cholesterol 182 (50-199) mg/dL HDL Cholesterol 95 H (40-59) mg/dL Cholesterol/HDL Ratio 1.91 % CBC 05/25/22 05/25/22 Range/Units 15:55 22:38 WBC 5.7 (4.5-11.0) K/mm3 RBC 3.46 L (3.65-5.03) M/mm3 Hgb 11.8 11.5 L (11.8-15.2) gm/dl Hct 38.4 40.5 (35.5-45.6) % Plt Count 125 L 87 L (140-440) K/mm3 Comprehensive Metabolic Panel 05/25/22 05/25/22 05/26/22 Range/Units 15:55 22:38 01:15 Sodium 136 L 135 L 135 L (137-145) mmol/L Potassium 3.7 3.9 3.7 (3.6-5.0) mmol/L Chloride 88.6 L 95.9 L 96.4 L (98-107) mmol/L Carbon Dioxide 14 L 7 L* D 11 L (22-30) mmol/L BUN 47 H 46 H 44 H (9-20) mg/dL Creatinine 2.7 H 2.7 H 2.6 H (0.8-1.3) mg/dL Glucose 418 H 362 H 381 H (75-100) mg/dL Calcium 9.2 8.2 L 7.5 L (8.4-10.2) mg/dL AST 57 H (5-40) units/L ALT 35 (7-56) units/L Alkaline Phosphatase 66 (35-129) units/L Total Protein 4.7 L (6.3-8.2) g/dL Albumin 3.0 L (3.9-5) g/dL 05/26/22 05/26/22 Range/Units 05:55 11:12 Sodium 135 L 139 (137-145) mmol/L Potassium 3.4 L 4.0 (3.6-5.0) mmol/L Chloride 97.3 L 101.4 (98-107) mmol/L Carbon Dioxide 13 L 12 L (22-30) mmol/L BUN 44 H 45 H (9-20) mg/dL Creatinine 2.8 H 3.0 H (0.8-1.3) mg/dL Glucose 223 H 121 H (75-100) mg/dL Calcium 8.0 L 7.4 L (8.4-10.2) mg/dL AST (5-40) units/L ALT (7-56) units/L Alkaline Phosphatase (35-129) units/L Total Protein (6.3-8.2) g/dL Albumin (3.9-5) g/dL - Imaging and Cardiology Echo: pending - Telemetry EKG Rhythm: Sinus Rhythm - EKG Sinus rhythms and dysrhythmias: sinus rhythm AV and intraventricular conduction: right bundle branch block
[2022-05-26 11:59] LABS: Platelet Count 52 K/mm3 (140-440)
[2022-05-26] MEDS ORDERED: AZITHROMYCIN/NS 500 MG/250 ML 500 MG/250 ML BAG IV SCH (12:00)
[2022-05-26] MEDS ORDERED: cefTRIAXone/NS 2 GM/100 ML 2 GM/100 ML BAG IV SCH (12:00)
--- NOTE | 2022-05-26 12:14 | Progress Note ---
<FREDDY RIVERA - Last Filed: 05/26/22 17:49> Assessment and Plan Assessment and plan: This is a 77-year-old male with known past medical history of DM, osteomyeloma (being treated at [facility]), chronic right femoral artery occlusion, was on AC at home initially admitted for chest pain, metabolic acidosis, and DKA. Patient became unresponsive while in the ED requiring ventilatory support and now on multiple pressors. Hospital Course to Date: 05/26: Patient remains encephalopathic and on the vent. Remains on 3 pressors, hypotermic, and leukopenic, still with severe metabolic acidosis. COVID PRC also came back positive. Will panculture, sodium bcarb gtt, and empiric IV ant ibiotics were initiated. CRP and procal pending. ID consulted. Heparin gtt on hold due to worsen thrombocytopenia and elevated INR, no s/s of any active bleeding. Will continue to trend CBC and coags. Cardiology is also following, 2D echo pending, awaiting final recommendations. Patient remains on insulin gtt per DKA protocol, will transition to subq insulin once BG level improved. Renal function continue to worsen, continue current IVF hydration. Nephrology consulted. Medical record requested from [facility] and PCP. Assessment and Plan #Shock- Cardiogenic vs Septic #NSTEMI type 2 - Karena in by EMS for CP, with elevated troponin X3 - Per EMS initial EKG showed ST elevation WI on the inferior leads. - Repeat EKG in the ED reveal BBB, but significant ST changes - Cardiology was consulted, appreciated recommendations - No plan for any intervention at this time - NSTEMI most likely type 2 secondary to renal failure - Patient is now on 3 pressors and Bcarb gtt - 2D echo pending - Continue blood pressure monitor per protocol - Titrate pressors for MAP above 65 - Heparin gtt held due to worsen thrombocytopenia and elevated INR #Acute Hypoxic Respiratory Failure #COVID 19 Infection - Intubated in the ED on 05/25 - Vent setting: PRVC-60%,6,30,500 - AM ABG noted - COVID PCR positive - CCM consulted, appreciate recommendations - IV abx and IV steroids initiated - VAP bundle addressed - Aspiration precaution HOB above 30 - Daily SBT and SAT trials as tolerated - Daily ABG and CXR - Continue SPO2 monitoring for SPO2 goal above 92% #Septic Shock #Possible Bilateral Pneumonia #COVID 19 Infection #Urinary Tract Infection(UTI) - With hypothermia, leukopenia, severe metabolic acidosis, requiring multiple pressors - Imaging with bibasilar atelectesis/opacities - COVID PCR is positive; UA with elevated wbcs, cultures pending - CRP and Procal pending - IV steroids and IV Abx initiated - ID consulted - F/U on cultures - Daily CBC monitor #Acute Metabolic Encephalopathy - Probably secondary to above - CT head/brain reveal encephalomalacia but no evidence of any acute intracranial hemorrhage - Patient is on the vent, awake but no following commands - Treat underlying cause, as describe above - Avoid benzodiazepine to reduce the possibility of delirium - PRN Analgesia for CPOT greater than 3 - Maintenance of sleep-wake cycle #Acute Kidney Injury (MOIZ) most likely ATN #Hypokalemia #Metabolic Acidosis - secondary to above - Baseline renal function is unknown, - Scr. as high as 2.8 this am and oligoric - S/p IV contrast on 05/25 - Currently on [place] gtt - Nephrology consulted - Strict intake and output - Avoid nephrotoxic medications; Renally dose medications - Calderon in place, with low UOP - Continue IVF for now - Monitor and replace electrolytes as needed #Chronic Right Femoral Artery Occlusion - Right femoral artery occlusion noted on CTA abd/pelvis - Per patient's this is chronic, patient had multiple vascular procedure in the past with no success - Patient was placed on chronic AC, probably Eliquis. Family to bring in home medications list - Heparin gtt held due to worsen thrombocytopenia and elevated INR - Will continue to monitor #Thrombocytopenia #Elevated INR - Dropped in plt and INR above 5 this am - H&H stable, no s/s of any active bleeding - Heparin gtt held - Continue to trend CBC and coags - Transfuse for plt less than 20 and hgb less than 7 #Diabetic Ketoacidosis(DKA) - On DKA protocol - Additional IVF bolus administered - Continue insulin gtt and IVF resuscitation per protocol - Monitor and replace electrolytes as needed - Monitor anion gap, serial Labs ordered - Will probably transition to subQ insulin later on today #Osteomyeloma - Chronic, diagnosed over 2 years - Currently receiving treatment at [facility] - Records requested from [facility] and PCP #GI/DVT Prophylaxis - PPI- Pepcid - SCDs to bilateral lower extremities while in bed #Advance Care Planning - Disease education data, care plan, diagnoses, and prognosis were thoroughly discussed with patient's spouse and Adult children. Patient is a FULL code. They acknowledged understanding and agreed with current care plan. The high probability of a clinically significant, sudden or life threatening deterioration of the [multiple] system(s) required my full and direct attention, intervention and personal management. The aggregate critical care time was [90] minutes. This time is in addition to time spent performing reported procedures but includes the following: [x] Data Review and interpretation [x] Patient assessment and monitoring of vital signs [x] Documentation [x] Medication orders and management Disposition Plan: ICU Total Time Spent with Patient (Minutes): 90 History Interval history: Patient seen and examined at the bedside. Patient is on ventilatory support. Open eyes spontaneously and move all extremities, but does not follow commands. Patient is on 3 pressors and on the DKA protocol. Hospitalist Physical - Constitutional Vitals: Temp Pulse Resp BP Pulse Ox 97.7 F 80 30 H 88/52 57 L 05/26/22 08:00 05/26/22 10:20 05/26/22 10:20 05/26/22 10:20 05/26/22 10:20 General appearance: Present: no acute distress, well-nourished, obese, other (On the vent) - EENT Eyes: Present: PERRL - Neck Neck: Present: normal ROM - Respiratory Respiratory effort: normal Respiratory: bilateral: rhonchi - Cardiovascular Rhythm: regular Heart Sounds: Present: S1 & S2 - Extremities Extremities: no ischemia, pulses intact, pulses symmetrical Peripheral Pulses: within normal limits - Abdominal General gastrointestinal: soft, non-distended, normal bowel sounds - Integumentary Integumentary: Present: warm, dry - Psychiatric Psychiatric: other (ROLLY) - Neurologic Neurologic: moves all extremities, other (Open eyes spontaneously but does not follow any commands) - Allied Health Allied health notes reviewed: nursing, case management HEART Score - HEART Score EKG: Non-specific Age: > 65 Risk factors: 1-2 risk factors Troponin: Troponin T 0.827 ng/mL (0.00-0.029) H* D 05/26/22 03:15 Troponin: 1-3x normal limit - Critical Actions Critical Actions: 4-6 pts:12-16.6% risk of adverse cardiac event. Should be admitted Results - Labs CBC & Chem 7: 05/26/22 11:15 05/26/22 16:35 Labs: Laboratory Last Values WBC 4.4 K/mm3 (4.5-11.0) L 05/26/22 11:15 RBC 3.22 M/mm3 (3.65-5.03) L 05/26/22 11:15 Hgb 11.0 gm/dl (11.8-15.2) L 05/26/22 11:15 Hct 34.1 % (35.5-45.6) L D 05/26/22 11:15 MCV 106 fl (84-94) H 05/26/22 11:15 MCH 34 pg (28-32) H 05/26/22 11:15 MCHC 32 % (32-34) 05/26/22 11:15 RDW 17.2 % (13.2-15.2) H 05/26/22 11:15 Plt Count 52 K/mm3 (140-440) L 05/26/22 11:15 Add Manual Diff Complete 05/25/22 15:55 Total Counted 100 05/25/22 15:55 Seg Neuts % (Manual) 52.0 % (40.0-70.0) 05/25/22 15:55 Band Neutrophils % 6.0 % 05/25/22 15:55 Lymphocytes % (Manual) 19.0 % (13.4-35.0) 05/25/22 15:55 Reactive Lymphs % (Man) 1.0 % 05/25/22 15:55 Monocytes % (Manual) 3.0 % (0.0-7.3) 05/25/22 15:55 Eosinophils % (Manual) 1.0 % (0.0-4.3) 05/25/22 15:55 Basophils % (Manual) 0 % (0.0-1.8) 05/25/22 15:55 Metamyelocytes % 12.0 % 05/25/22 15:55 Myelocytes % 6.0 % 05/25/22 15:55 Promyelocytes % 0 % 05/25/22 15:55 Blast Cells % 0 % 05/25/22 15:55 Nucleated RBC % Not Reportable 05/25/22 15:55 Seg Neutrophils # Man 3.0 K/mm3 (1.8-7.7) 05/25/22 15:55 Band Neutrophils # 0.3 K/mm3 05/25/22 15:55 Lymphocytes # (Manual) 1.1 K/mm3 (1.2-5.4) L 05/25/22 15:55 Abs React Lymphs (Man) 0.1 K/mm3 05/25/22 15:55 Monocytes # (Manual) 0.2 K/mm3 (0.0-0.8) 05/25/22 15:55 Eosinophils # (Manual) 0.1 K/mm3 (0.0-0.4) 05/25/22 15:55 Basophils # (Manual) 0.0 K/mm3 (0.0-0.1) 05/25/22 15:55 Metamyelocytes # 0.7 K/mm3 05/25/22 15:55 Myelocytes # 0.3 K/mm3 05/25/22 15:55 Promyelocytes # 0.0 K/mm3 05/25/22 15:55 Blast Cells # 0.0 K/mm3 05/25/22 15:55 WBC Morphology Not Reportable 05/25/22 15:55 Hypersegmented Neuts Not Reportable 05/25/22 15:55 Hyposegmented Neuts Not Reportable 05/25/22 15:55 Hypogranular Neuts Not Reportable 05/25/22 15:55 Smudge Cells Not Reportable 05/25/22 15:55 Toxic Granulation Not Reportable 05/25/22 15:55 Toxic Vacuolation Not Reportable 05/25/22 15:55 Dohle Bodies Not Reportable 05/25/22 15:55 Pelger-Huet Anomaly Not Reportable 05/25/22 15:55 Javi Rods Not Reportable 05/25/22 15:55 Platelet Estimate Consistent w auto 05/25/22 15:55 Clumped Platelets Not Reportable 05/25/22 15:55 Plt Clumps, EDTA Not Reportable 05/25/22 15:55 Large Platelets Not Reportable 05/25/22 15:55 Giant Platelets Not Reportable 05/25/22 15:55 Platelet Satelliting Not Reportable 05/25/22 15:55 Plt Morphology Comment Not Reportable 05/25/22 15:55 RBC Morphology Not Reportable 05/25/22 15:55 Dimorphic RBCs Not Reportable 05/25/22 15:55 Polychromasia Not Reportable 05/25/22 15:55 Hypochromasia Not Reportable 05/25/22 15:55 Poikilocytosis Not Reportable 05/25/22 15:55 Anisocytosis Not Reportable 05/25/22 15:55 Microcytosis Not Reportable 05/25/22 15:55 Macrocytosis 2+ 05/25/22 15:55 Spherocytes Not Reportable 05/25/22 15:55 Pappenheimer Bodies Not Reportable 05/25/22 15:55 Sickle Cells Not Reportable 05/25/22 15:55 Target Cells Not Reportable 05/25/22 15:55 Tear Drop Cells Not Reportable 05/25/22 15:55 Ovalocytes Not Reportable 05/25/22 15:55 Helmet Cells Not Reportable 05/25/22 15:55 [place] Bodies Not Reportable 05/25/22 15:55 Simon Rings Not Reportable 05/25/22 15:55 Patricio Cells Not Reportable 05/25/22 15:55 Bite Cells Not Reportable 05/25/22 15:55 Crenated Cell Not Reportable 05/25/22 15:55 Elliptocytes Not Reportable 05/25/22 15:55 Acanthocytes (Spur) Not Reportable 05/25/22 15:55 Rouleaux Not Reportable 05/25/22 15:55 Hemoglobin C Crystals Not Reportable 05/25/22 15:55 Schistocytes Not Reportable 05/25/22 15:55 Malaria parasites Not Reportable 05/25/22 15:55 Abhinav Bodies Not Reportable 05/25/22 15:55 Hem Pathologist Commnt No 05/25/22 15:55 PT 56.8 Sec. (12.2-14.9) H 05/25/22 22:38 INR 5.34 (0.87-1.13) H* 05/25/22 22:38 APTT 70.4 Sec. (24.2-36.6) H* 05/25/22 22:38 D-Dimer 879.09 ng/mlDDU (0-234) H 05/25/22 15:55 Heparin Anti-Xa Level 2.30 U.I./ml (0.3-0.7) H 05/26/22 03:15 ABG pH 7.267 pH Units (7.350-7.450) L 05/26/22 11:05 ABG pCO2 22.9 mm Hg 05/26/22 11:05 ABG pO2 83.8 mm Hg (80.0-90.0) 05/26/22 11:05 ABG HCO3 10.2 mmol/L (20.0-26.0) L 05/26/22 11:05 ABG O2 Saturation 95.3 % (95.0-99.0) 05/26/22 11:05 ABG O2 Content 15.9 (0.0-44) 05/26/22 11:05 ABG Base Excess -14.9 mmol/L (-2.0-3.0) L 05/26/22 11:05 ABG Hemoglobin 11.9 gm/dl (14.0-18.0) L 05/26/22 11:05 ABG Carboxyhemoglobin 1.0 % (0.0-5.0) 05/26/22 11:05 ABG Methemoglobin 0.0 % (0.0-1.5) 05/26/22 11:05 Oxyhemoglobin 94.3 % (95.0-99.0) L 05/26/22 11:05 FiO2 50 % 05/26/22 11:05 Sodium 139 mmol/L (137-145) 05/26/22 11:12 Potassium 4.0 mmol/L (3.6-5.0) 05/26/22 11:12 Chloride 101.4 mmol/L (98-107) 05/26/22 11:12 Carbon Dioxide 12 mmol/L (22-30) L 05/26/22 11:12 Anion Gap 30 mmol/L 05/26/22 11:12 BUN 45 mg/dL (9-20) H 05/26/22 11:12 Creatinine 3.0 mg/dL (0.8-1.3) H 05/26/22 11:12 Estimated GFR 25 ml/min 05/26/22 11:12 BUN/Creatinine Ratio 15 % 05/26/22 11:12 Glucose 121 mg/dL (75-100) H 05/26/22 11:12 POC Glucose 208 mg/dL (70-105) H 05/26/22 07:07 Ketones Quantitative Negative (Negative) 05/25/22 22:38 Calcium 7.4 mg/dL (8.4-10.2) L 05/26/22 11:12 Phosphorus 9.00 mg/dL (2.5-4.5) H D 05/26/22 11:12 Magnesium 3.90 mg/dL (1.7-2.3) H 05/26/22 11:12 Total Bilirubin 0.90 mg/dL (0.1-1.2) 05/25/22 15:55 AST 57 units/L (5-40) H 05/25/22 15:55 ALT 35 units/L (7-56) 05/25/22 15:55 Alkaline Phosphatase 66 units/L (35-129) 05/25/22 15:55 Lactate Dehydrogenase 639 units/L (91-180) H 05/26/22 11:12 Troponin T 0.827 ng/mL (0.00-0.029) H* D 05/26/22 03:15 C-Reactive Protein 20.20 mg/dL (0.00-1.30) H 05/26/22 11:12 Total Protein 4.7 g/dL (6.3-8.2) L 05/25/22 15:55 Albumin 3.0 g/dL (3.9-5) L 05/25/22 15:55 Albumin/Globulin Ratio 1.8 % 05/25/22 15:55 Triglycerides 121 mg/dL (2-149) 05/25/22 15:55 Cholesterol 182 mg/dL (50-199) 05/25/22 15:55 LDL Cholesterol Direct 75 mg/dL (50-130) 05/25/22 15:55 HDL Cholesterol 95 mg/dL (40-59) H 05/25/22 15:55 Cholesterol/HDL Ratio 1.91 % 05/25/22 15:55 SARS-CoV-2 (PCR) Positive (Negative) A 05/26/22 09:20 Calderon/IV: Voiding Method Indwelling Catheter Active Medications - Current Medications Current Medications: Generic Name Dose Route Start Last Admin Trade Name Freq PRN Reason Stop Dose Admin Acetaminophen 650 mg 05/25/22 21:45 Acetaminophen 325 Mg Tab PO Q6H PRN Pain, Mild (1-3) Acetaminophen 650 mg 05/25/22 21:45 Acetaminophen 650 Mg Rect Supp [place] Q6H PRN Pain MILD(1-3)/Fever >100.5/HILLMAN Dexamethasone 8 mg 05/26/22 11:00 Dexamethasone 4 Mg/Ml Vial IV 06/04/22 10:01 QDAY WILLIAM Dextrose 0 ml 05/25/22 21:25 Dextrose 50% In Water (25gm) 50 Ml Syringe IV Q30MIN PRN Hypoglycemia Protocol Famotidine 20 mg 05/26/22 10:00 05/26/22 10:41 Famotidine 20 Mg/2 Ml Inj IV 20 mg QDAY WILLIAM Administration Hydrophilic Ointment 1 applic 05/26/22 09:04 Lip Therapy Vaseline TP Q2HR PRN Dry Lips NORepinephrine/NS 8 MG-250 ML 8 mg in 250 mls @ 3.75 mls/hr 05/25/22 21:00 05/26/22 10:41 Norepinephrine/Ns 8 Mg-250 Ml (Double Conc) IV 30 mcg/min TITRATE WILLIAM 56.25 mls/hr Administration Protocol 2 MCG/MIN Insulin Human Regular 100 100 mls @ 7 mls/hr 05/25/22 22:00 05/26/22 10:55 units/ Sodium Chloride IV 1.5 units/hr TITR WILLIAM 1.5 mls/hr Titration Protocol 7 UNITS/HR Vasopressin 20 unit/ Sodium 101 mls @ 9.09 mls/hr 05/25/22 22:00 05/26/22 09:44 Chloride IV 0.03 units/min TITR WILLIAM 9.09 mls/hr Administration Protocol 0.03 UNITS/MIN Dopamine HCl/Dextrose 800 mg in 250 mls @ 2.977 mls/hr 05/25/22 23:45 05/26/22 11:45 Dopamine 800 Mg/D5w 250ml IV 8 mcg/kg/min TITR WILLIAM 11.907 mls/hr Titration Protocol 2 MCG/KG/MIN Sodium Bicarbonate 150 meq/ 1,150 mls @ 125 mls/hr 05/26/22 11:00 05/26/22 10:44 Dextrose IV 125 mls/hr DIRECT WILLIAM Administration Azithromycin 500 mg in 250 mls @ 250 mls/hr 05/26/22 12:00 Zithromax/Ns IV Q24H WILLIAM Ceftriaxone Sodium 2 gm in 100 mls @ 200 mls/hr 05/26/22 12:00 Rocephin/Ns 2 Gm/100 Ml IV Q24H WILLAIM Protocol Magnesium Hydroxide 30 ml 08/29/22 21:45 Magnesium Hydroxide (Mom) Oral Liqd Udc PO Q4H PRN Constipation Morphine Sulfate 2 mg 05/25/22 21:45 Morphine 4 Mg/1 Ml Inj IV Q5MIN PRN Chest Pain unrelieved by NTG Multi-Ingred Cream/Lotion/Oil/Oint 1 applic 05/26/22 09:04 Mineral Oil/Petrolatum, White Ophth Oint 3.5 Gm OU Q4HR PRN Dry Eye(s) Nitroglycerin 0.4 mg 05/25/22 21:45 Nitroglycerin 0.4 Mg Tab Subl SL Q5M PRN Chest Pain Ondansetron HCl 4 mg 05/25/22 21:45 Ondansetron 4 Mg/2 Ml Inj IV Q8H PRN Nausea And Vomiting Senna/Docusate Sodium 2 tab 05/26/22 10:00 05/26/22 10:41 Sennosides/Docusate Sodium 8.6/50 Mg Tab FEEDTUBE 2 tab BID WILLIAM Administration Sodium Chloride 10 ml 05/25/22 22:00 05/26/22 10:03 Sodium Chloride 0.9% 10 Ml Flush Syringe IV 10 ml BID WILLIAM Administration Sodium Chloride 10 ml 05/25/22 21:45 Sodium Chloride 0.9% 10 Ml Flush Syringe IV PRN PRN LINE FLUSH Tramadol HCl 50 mg 05/25/22 21:45 Tramadol 50 Mg Tab PO Q6H PRN Pain, Moderate (4-6) <SILVANA CRUZ - Last Filed: 05/27/22 07:30> Assessment and Plan Assessment and plan: I saw and evaluated the patient. I agree with the findings and the plan of care as documented in the Nurse Practitioner's~note, with the following corrections and additions. I did discuss with the spouse and the family about the patient's clinical condition and grave prognosis. Patient currently on 4 pressors. Echocardiogram has been ordered and pending. Advanced care planning was discussed in addition and family elected full code. Hospitalist Physical - Constitutional Vitals: Temp Pulse Resp BP Pulse Ox 99.1 F 90 30 H 70/43 73 L 05/27/22 03:54 05/27/22 06:00 05/27/22 06:00 05/27/22 06:00 05/27/22 05:55 HEART Score - HEART Score Troponin: Troponin T 0.827 ng/mL (0.00-0.029) H* D 05/26/22 03:15 Results - Labs CBC & Chem 7: 05/27/22 03:30 05/27/22 03:30 Labs: Laboratory Last Values WBC 4.6 K/mm3 (4.5-11.0) 05/27/22 03:30 RBC 2.71 M/mm3 (3.65-5.03) L 05/27/22 03:30 Hgb 9.4 gm/dl (11.8-15.2) L 05/27/22 03:30 Hct 30.5 % (35.5-45.6) L 05/27/22 03:30 MCV 113 fl (84-94) H 05/27/22 03:30 MCH 35 pg (28-32) H 05/27/22 03:30 MCHC 31 % (32-34) L 05/27/22 03:30 RDW 18.4 % (13.2-15.2) H 05/27/22 03:30 Plt Count 16 K/mm3 (140-440) L* 05/27/22 03:30 Add Manual Diff Complete 05/25/22 15:55 Total Counted 100 05/25/22 15:55 Seg Neuts % (Manual) 52.0 % (40.0-70.0) 05/25/22 15:55 Band Neutrophils % 6.0 % 05/25/22 15:55 Lymphocytes % (Manual) 19.0 % (13.4-35.0) 05/25/22 15:55 Reactive Lymphs % (Man) 1.0 % 05/25/22 15:55 Monocytes % (Manual) 3.0 % (0.0-7.3) 05/25/22 15:55 Eosinophils % (Manual) 1.0 % (0.0-4.3) 05/25/22 15:55 Basophils % (Manual) 0 % (0.0-1.8) 05/25/22 15:55 Metamyelocytes % 12.0 % 05/25/22 15:55 Myelocytes % 6.0 % 05/25/22 15:55 Promyelocytes % 0 % 05/25/22 15:55 Blast Cells % 0 % 05/25/22 15:55 Nucleated RBC % Not Reportable 05/25/22 15:55 Seg Neutrophils # Man 3.0 K/mm3 (1.8-7.7) 05/25/22 15:55 Band Neutrophils # 0.3 K/mm3 05/25/22 15:55 Lymphocytes # (Manual) 1.1 K/mm3 (1.2-5.4) L 05/25/22 15:55 Abs React Lymphs (Man) 0.1 K/mm3 05/25/22 15:55 Monocytes # (Manual) 0.2 K/mm3 (0.0-0.8) 05/25/22 15:55 Eosinophils # (Manual) 0.1 K/mm3 (0.0-0.4) 05/25/22 15:55 Basophils # (Manual) 0.0 K/mm3 (0.0-0.1) 05/25/22 15:55 Metamyelocytes # 0.7 K/mm3 05/25/22 15:55 Myelocytes # 0.3 K/mm3 05/25/22 15:55 Promyelocytes # 0.0 K/mm3 05/25/22 15:55 Blast Cells # 0.0 K/mm3 05/25/22 15:55 WBC Morphology Not Reportable 05/25/22 15:55 Hypersegmented Neuts Not Reportable 05/25/22 15:55 Hyposegmented Neuts Not Reportable 05/25/22 15:55 Hypogranular Neuts Not Reportable 05/25/22 15:55 Smudge Cells Not Reportable 05/25/22 15:55 Toxic Granulation Not Reportable 05/25/22 15:55 Toxic Vacuolation Not Reportable 05/25/22 15:55 Dohle Bodies Not Reportable 05/25/22 15:55 Pelger-Huet Anomaly Not Reportable 05/25/22 15:55 Javi Rods Not Reportable 05/25/22 15:55 Platelet Estimate Consistent w auto 05/25/22 15:55 Clumped Platelets Not Reportable 05/25/22 15:55 Plt Clumps, EDTA Not Reportable 05/25/22 15:55 Large Platelets Not Reportable 05/25/22 15:55 Giant Platelets Not Reportable 05/25/22 15:55 Platelet Satelliting Not Reportable 05/25/22 15:55 Plt Morphology Comment Not Reportable 05/25/22 15:55 RBC Morphology Not Reportable 05/25/22 15:55 Dimorphic RBCs Not Reportable 05/25/22 15:55 Polychromasia Not Reportable 05/25/22 15:55 Hypochromasia Not Reportable 05/25/22 15:55 Poikilocytosis Not Reportable 05/25/22 15:55 Anisocytosis Not Reportable 05/25/22 15:55 Microcytosis Not Reportable 05/25/22 15:55 Macrocytosis 2+ 05/25/22 15:55 Spherocytes Not Reportable 05/25/22 15:55 Pappenheimer Bodies Not Reportable 05/25/22 15:55 Sickle Cells Not Reportable 05/25/22 15:55 Target Cells Not Reportable 05/25/22 15:55 Tear Drop Cells Not Reportable 05/25/22 15:55 Ovalocytes Not Reportable 05/25/22 15:55 Helmet Cells Not Reportable 05/25/22 15:55 [place] Bodies Not Reportable 05/25/22 15:55 Simon Rings Not Reportable 05/25/22 15:55 Patricio Cells Not Reportable 05/25/22 15:55 Bite Cells Not Reportable 05/25/22 15:55 Crenated Cell Not Reportable 05/25/22 15:55 Elliptocytes Not Reportable 05/25/22 15:55 Acanthocytes (Spur) Not Reportable 05/25/22 15:55 Rouleaux Not Reportable 05/25/22 15:55 Hemoglobin C Crystals Not Reportable 05/25/22 15:55 Schistocytes Not Reportable 05/25/22 15:55 Malaria parasites Not Reportable 05/25/22 15:55 Abhinav Bodies Not Reportable 05/25/22 15:55 Hem Pathologist Commnt No 05/25/22 15:55 PT 29.7 Sec. (12.2-14.9) H 05/26/22 11:12 INR 2.44 (0.87-1.13) H 05/26/22 11:12 APTT 135.4 Sec. (24.2-36.6) H* 05/26/22 11:12 Fibrinogen 409 mg/dl (211-480) 05/26/22 11:12 D-Dimer 667.33 ng/mlDDU (0-234) H 05/26/22 11:12 Heparin Anti-Xa Level 2.30 U.I./ml (0.3-0.7) H 05/26/22 03:15 ABG pH 7.192 pH Units (7.350-7.450) L* 05/27/22 01:20 ABG pCO2 24.3 mm Hg 05/27/22 01:20 ABG pO2 179.0 mm Hg (80.0-90.0) H 05/27/22 01:20 ABG HCO3 9.1 mmol/L (20.0-26.0) L 05/27/22 01:20 ABG O2 Saturation 98.9 % (95.0-99.0) 05/27/22 01:20 ABG O2 Content 12.9 (0.0-44) 05/27/22 01:20 ABG Base Excess -17.4 mmol/L (-2.0-3.0) L 05/27/22 01:20 ABG Hemoglobin 9.1 gm/dl (14.0-18.0) L 05/27/22 01:20 ABG Carboxyhemoglobin 1.0 % (0.0-5.0) 05/27/22 01:20 ABG Methemoglobin 0.8 % (0.0-1.5) 05/27/22 01:20 Oxyhemoglobin 97.2 % (95.0-99.0) 05/27/22 01:20 FiO2 100 % 05/27/22 01:20 Sodium 142 mmol/L (137-145) 05/27/22 03:30 Potassium 6.6 mmol/L (3.6-5.0) H* 05/27/22 03:30 Chloride 96.1 mmol/L (98-107) L 05/27/22 03:30 Carbon Dioxide 6 mmol/L (22-30) L* 05/27/22 03:30 Anion Gap 47 mmol/L 05/27/22 03:30 BUN 48 mg/dL (9-20) H 05/27/22 03:30 Creatinine 3.2 mg/dL (0.8-1.3) H 05/27/22 03:30 Estimated GFR 23 ml/min 05/27/22 03:30 BUN/Creatinine Ratio 15 % 05/27/22 03:30 Glucose 159 mg/dL (75-100) H 05/27/22 03:30 POC Glucose 96 mg/dL (70-105) 05/27/22 06:20 Ketones Quantitative Negative (Negative) 05/25/22 22:38 Lactic Acid 26.60 mmol/L (0.7-2.0) H* 05/27/22 03:30 Calcium 6.8 mg/dL (8.4-10.2) L 05/27/22 03:30 Phosphorus 14.30 mg/dL (2.5-4.5) H D 05/27/22 00:00 Magnesium 3.90 mg/dL (1.7-2.3) H 05/27/22 00:00 Ferritin 6884.0 ng/mL (30.0-300.0) H 05/26/22 11:12 Total Bilirubin 1.70 mg/dL (0.1-1.2) H 05/26/22 21:12 AST 3262 units/L (5-40) H 05/26/22 21:12 ALT 1502 units/L (7-56) H 05/26/22 21:12 Alkaline Phosphatase 83 units/L (35-129) 05/26/22 21:12 Lactate Dehydrogenase 639 units/L (91-180) H 05/26/22 11:12 Troponin T 0.827 ng/mL (0.00-0.029) H* D 05/26/22 03:15 C-Reactive Protein 20.20 mg/dL (0.00-1.30) H 05/26/22 11:12 Total Protein 3.3 g/dL (6.3-8.2) L D 05/26/22 21:12 Albumin 1.8 g/dL (3.9-5) L 05/26/22 21:12 Albumin/Globulin Ratio 1.2 % 05/26/22 21:12 Triglycerides 121 mg/dL (2-149) 05/25/22 15:55 Cholesterol 182 mg/dL (50-199) 05/25/22 15:55 LDL Cholesterol Direct 75 mg/dL (50-130) 05/25/22 15:55 HDL Cholesterol 95 mg/dL (40-59) H 05/25/22 15:55 Cholesterol/HDL Ratio 1.91 % 05/25/22 15:55 Procalcitonin 128.94 ng/mL (<0.15) 05/26/22 11:12 Urine Color Areli (Yellow) 05/26/22 Unknown Urine Turbidity Hazy (Clear) 05/26/22 Unknown Specific [place] (Man) 1.020 (1.003-1.030) 05/26/22 Unknown Ur Protein (Man) 1+ mg/dL (Negative) 05/26/22 Unknown Ur Ketones (Man) Negative (Negative) 05/26/22 Unknown Ur Nitrite (Man) Negative (Negative) 05/26/22 Unknown Urine Bilirubin (Man) Small (Negative) 05/26/22 Unknown Urine Ictotest Positive (Negative) 05/26/22 Unknown Leukocyte Esterase (Man) Trace (Negative) 05/26/22 Unknown Urine WBC (Auto) 29.0 /HPF (0.0-6.0) H 05/26/22 Unknown Urine RBC (Auto) 38.0 /HPF (0.0-6.0) 05/26/22 Unknown U Epithel Cells (Auto) 2.0 /HPF (0-13.0) 05/26/22 Unknown Urine Bacteria (Auto) 2+ /HPF (Negative) 05/26/22 Unknown Urine RBC (Manual) 3+ (Negative) 05/26/22 Unknown Amorphous Crystals 3+ 05/26/22 Unknown Hyaline Casts 3 /LPF 05/26/22 Unknown Granular Casts 83 /LPF 05/26/22 Unknown Urine Mucus 1+ /HPF 05/26/22 Unknown Urine Creatinine 40.7 mg/dL (0.1-20.0) H 05/26/22 Unknown Urine Sodium 94 mmol/L 05/26/22 Unknown SARS-CoV-2 (PCR) Positive (Negative) A 05/26/22 09:20 Blood Type A POSITIVE 05/27/22 04:00 Antibody Screen Negative 05/27/22 04:00 Microbiology: Microbiology 05/26/22 17:08 Peripheral/Venous Blood Culture - Preliminary Culture in Progress 05/26/22 17:08 Peripheral/Venous Blood Culture - Preliminary Culture in Progress [place]/IV: Voiding Method Indwelling Catheter Active Medications - Current Medications Current Medications: Generic Name Dose Route Start Last Admin Trade Name Freq PRN Reason Stop Dose Admin Acetaminophen 650 mg 05/25/22 21:45 Acetaminophen 325 Mg Tab PO Q6H PRN Pain, Mild (1-3) Acetaminophen 650 mg 05/25/22 21:45 Acetaminophen 650 Mg Rect Supp [place] Q6H PRN Pain MILD(1-3)/Fever >100.5/[place] Dexamethasone 8 mg 05/26/22 11:00 05/26/22 17:55 Dexamethasone 4 Mg/Ml Vial IV 06/04/22 10:01 8 mg QDAY WILLIAM Administration Dextrose 0 ml 05/25/22 21:25 Dextrose 50% In Water (25gm) 50 Ml Syringe IV Q30MIN PRN Hypoglycemia Protocol Dextrose 50 ml 05/26/22 17:47 Dextrose 50% In Water (25gm) 50 Ml Syringe IV Q30MIN PRN Hypoglycemia Protocol Famotidine 20 mg 05/26/22 10:00 05/26/22 10:41 Famotidine 20 Mg/2 Ml Inj IV 20 mg QDAY WILLIAM Administration Hydrophilic Ointment 1 applic 05/26/22 09:04 Lip Therapy Vaseline TP Q2HR PRN Dry Lips NORepinephrine/NS 8 MG-250 ML 8 mg in 250 mls @ 3.75 mls/hr 05/25/22 21:00 05/27/22 06:41 Norepinephrine/Ns 8 Mg-250 Ml (Double Conc) IV 30 mcg/min TITRATE WILLIAM 56.25 mls/hr Administration Protocol 2 MCG/MIN Vasopressin 20 unit/ Sodium 101 mls @ 9.09 mls/hr 05/25/22 22:00 05/27/22 04:15 Chloride IV 0.03 units/min TITR WILLIAM 9.09 mls/hr Administration Protocol 0.03 UNITS/MIN Dopamine HCl/Dextrose 800 mg in 250 mls @ 2.977 mls/hr 05/25/22 23:45 05/27/22 02:41 Dopamine 800 Mg/D5w 250ml IV 20 mcg/kg/min TITR WILLIAM 29.767 mls/hr Titration Protocol 2 MCG/KG/MIN Sodium Bicarbonate 150 meq/ 1,150 mls @ 125 mls/hr 05/26/22 11:00 05/27/22 04:58 Dextrose IV 125 mls/hr DIRECT WILLIAM Administration Azithromycin 500 mg in 250 mls @ 250 mls/hr 05/26/22 12:00 05/26/22 19:49 Zithromax/Ns IV Infused Q24H WILLIAM Infusion Ceftriaxone Sodium 2 gm in 100 mls @ 200 mls/hr 05/26/22 12:00 05/26/22 19:49 Rocephin/Ns 2 Gm/100 Ml IV Infused Q24H WILLIAM Infusion Protocol Sodium Chloride 500 mls @ 5 mls/hr 05/26/22 21:00 05/27/22 02:41 Nacl 0.9% 500 Ml IV 5 mls/hr DIRECT WILLIAM Infusion Epinephrine 16 mg/ Sodium 250 mls @ 1.875 mls/hr 05/27/22 03:00 05/27/22 04:25 Chloride IV 10 mcg/min TITR WILLIAM 9.375 mls/hr Titration Protocol 2 MCG/MIN Insulin Human Regular 0 units 05/26/22 22:00 05/27/22 06:23 Insulin Regular, Human 100 Units/1 Ml SUB-Q Not Given Q4HR [facility] Protocol Magnesium Hydroxide 30 ml 05/25/22 21:45 Magnesium Hydroxide (Mom) Oral Liqd Udc PO Q4H PRN Constipation Morphine Sulfate 2 mg 05/25/22 21:45 Morphine 4 Mg/1 Ml Inj IV Q5MIN PRN Chest Pain unrelieved by NTG Multi-Ingred Cream/Lotion/Oil/Oint 1 applic 05/26/22 09:04 Mineral Oil/Petrolatum, White Ophth Oint 3.5 Gm OU Q4HR PRN Dry Eye(s) Nitroglycerin 0.4 mg 05/25/22 21:45 Nitroglycerin 0.4 Mg Tab Subl SL Q5M PRN Chest Pain Ondansetron HCl 4 mg 05/25/22 21:45 Ondansetron 4 Mg/2 Ml Inj IV Q8H PRN Nausea And Vomiting Senna/Docusate Sodium 2 tab 05/26/22 10:00 05/26/22 22:43 Sennosides/Docusate Sodium 8.6/50 Mg Tab FEEDTUBE Not Given BID WILLIAM Sodium Chloride 10 ml 05/25/22 22:00 05/26/22 22:43 Sodium Chloride 0.9% 10 Ml Flush Syringe IV 10 ml BID WILLIAM Administration Sodium Chloride 10 ml 05/25/22 21:45 Sodium Chloride 0.9% 10 Ml Flush Syringe IV PRN PRN LINE FLUSH Tramadol HCl 50 mg 05/25/22 21:45 Tramadol 50 Mg Tab PO Q6H PRN Pain, Moderate (4-6) Nutrition/Malnutrition Assess - Dietary Evaluation Nutrition/Malnutrition Findings: Nutrition Notes Start: 05/26/22 13:55 Freq: Status: Active Protocol: Document 05/26/22 13:55 RAMONA (Rec: 05/26/22 14:11 RAMONA [id number]) Nutrition Notes Need for Assessment generated from: MD Order,Education Initial or Follow up Brief Note Current Diagnosis Acute Kidney Injury,Sepsis, Respiratory Failure Other Pertinent Diagnosis DKA, Hyperglycemia, NSTEMI II, COVID-19, AMS, Osteomyloma, . .. Current Diet NPO (since 05/26 00:01). Height 5 ft 8 in Weight 79.379 kg Young Harris Body Weight (kg) 70.00 BMI 26.6 Weight change and time frame None provided at admission. Weight Status Overweight Subjective/Other Information RD consult for nutrition education assessment. Pt is currently on NPO. Pt is on Mechanical Ventilation, O2 saturation @ 90%, according to Vital Signs notes. Pt has missing teeth, according to Physical Assessment History notes. Pt presents diarrhea and incontinence, according to Physical Assessment History notes. Pt needs total assistance with ADL activities, not a candidate for Nutrition Education. Percent of energy/protein needs met: Pt is currently on NPO. When pertinent, advance to alternative form of nutrition (eg. enteral nutrition). Nutrition Intervention Follow-Up By: 05/28/22 Additional Comments When pertinent advance to Enteral Nutrition or else.
[2022-05-26 12:20] LABS: INR 2.44 (0.87-1.13)
[2022-05-26 12:32] LABS: Partial Thromboplastin Time 135.4 Sec. (24.2-36.6)
[2022-05-26 13:04] LABS: Creatinine,Urine 40.7 mg/dL (0.1-20.0)
--- NOTE | 2022-05-26 13:16 | Electrocardiograph Report ---
[facility] Test Date: 2022-05-25 Test Time: 15:32:37 Pat Name: LEDA KHAN Department: Room: A263 1 Gender: M [employer] Consultant: MELA : 1945 Requested By: YESSY ALEXANDER Order Number: [id number] Reading MD: Mihaela Rizvi Measurements Intervals [place] Rate: 72 P: 78 PA: 116 QRS: -124 QRSD: 173 T: 19 QT: 481 QTc: 526 Interpretive Statements Sinus rhythm Atrial premature complex Right bundle branch block Inferolateral infarct, old No previous ECG available for comparison Electronically Signed On 05-26-2022 13:16:35 EDT by Mihaela Rizvi
[2022-05-26 13:17] LABS: Color,Urine Amber (Yellow); Ictotest,Urine Positive (Negative)
[2022-05-26 13:36] LABS: Amorphous Crystals,Urine 3+; Bacteria,Urine 2+ /HPF (Negative); Granular Casts,Urine 83 /LPF; Hyaline Casts,Urine 3 /LPF; Mucus,Urine 1+ /HPF
--- NOTE | 2022-05-26 14:36 | Consultation ---
History of Present Illness - Reason for Consult Consult date: 05/26/22 COVID-19, shock Requesting physician: FREDDY RIVERA - History of Present Illness The patient is a 77-year-old male with unknown past medical history was admitted to the hospital yesterday with complaints of chest pain possible STEMI. Upon evaluation in the ED by cardiology, EKG did not show STEMI. Patient was found to have hypothermia, leukopenia, thrombocytopenia, elevated INR, diabetic ketoacidosis. Creatinine was also elevated. Patient tested positive for COVID- 19, ID was consulted. Patient now intubated, on mechanical ventilation. Currently on 3 pressors. Initial chest x-ray did not reveal any obvious pneumonia. CT head showed right frontal lobe encephalomalacia, no acute abnormalities. CT chest, abdomen and pelvis echo showed an EF of 15 to 20% revealed no PE, showed extensive atherosclerotic change throughout abdominal aorta and branches. Some thickening of sigmoid colon was noted. Labs revealed ferritin 6884, CRP 20.2, procalcitonin 128.9, creatinine today of 3.0, troponin of 0.8. Review of Systems: Limited, patient intubated Past History Past Medical History: other (Unable to obtain, reported patient has history of osteomyeloma) Past Surgical History: Other (Unable to obtain) Social history: other (Unable to obtain) Family history: other (Unable to obtain) Medications and Allergies Allergies Allergy/AdvReac Type Severity Reaction Status Date / Time No Known Allergies Allergy Verified 05/25/22 16:19 Active Meds: Active Medications Acetaminophen (Acetaminophen 325 Mg Tab) 650 mg PO Q6H PRN PRN Reason: Pain, Mild (1-3) Acetaminophen (Acetaminophen 650 Mg Rect Supp) 650 mg [place] Q6H PRN PRN Reason: Pain MILD(1-3)/Fever >100.5/[place] Dexamethasone (Dexamethasone 4 Mg/Ml Vial) 8 mg IV QDAY WILLIAM Stop: 06/04/22 10:01 Dextrose (Dextrose 50% In Water (25gm) 50 Ml Syringe) 0 ml IV Q30MIN PRN; Protocol PRN Reason: Hypoglycemia Famotidine (Famotidine 20 Mg/2 Ml Inj) 20 mg IV QDAY WILLIAM Last Admin: 05/26/22 10:41 Dose: 20 mg Hydrophilic Ointment (Lip Therapy Vaseline) 1 applic TP Q2HR PRN PRN Reason: Dry Lips NORepinephrine/NS 8 MG-250 ML (Norepinephrine/Ns 8 Mg-250 Ml (Double Conc)) 8 mg in 250 mls @ 3.75 mls/hr IV TITRATE WILLIAM; Protocol Last Admin: 05/26/22 10:41 Dose: 30 mcg/min, 56.25 mls/hr Insulin Human Regular 100 (units/ Sodium Chloride) 100 mls @ 7 mls/hr IV TITR WILLIAM; Protocol Last Titration: 05/26/22 14:05 Dose: 1.5 units/hr, 1.5 mls/hr Vasopressin 20 unit/ Sodium (Chloride) 101 mls @ 9.09 mls/hr IV TITR WILLIAM; Protocol Last Admin: 05/26/22 09:44 Dose: 0.03 units/min, 9.09 mls/hr Dopamine HCl/Dextrose (Dopamine 800 Mg/D5w 250ml) 800 mg in 250 mls @ 2.977 mls/hr IV TITR WILLIAM; Protocol Last Titration: 05/26/22 13:15 Dose: 6 mcg/kg/min, 8.93 mls/hr Sodium Bicarbonate 150 meq/ (Dextrose) 1,150 mls @ 125 mls/hr IV DIRECT WILLIAM Last Admin: 05/26/22 10:44 Dose: 125 mls/hr Azithromycin (Zithromax/Ns) 500 mg in 250 mls @ 250 mls/hr IV Q24H WILLIAM Ceftriaxone Sodium (Rocephin/Ns 2 Gm/100 Ml) 2 gm in 100 mls @ 200 mls/hr IV Q24H WILLIAM; Protocol Magnesium Hydroxide (Magnesium Hydroxide (Mom) Oral Liqd Udc) 30 ml PO Q4H PRN PRN Reason: Constipation Morphine Sulfate (Morphine 4 Mg/1 Ml Inj) 2 mg IV Q5MIN PRN PRN Reason: Chest Pain unrelieved by NTG Multi-Ingred Cream/Lotion/Oil/Oint (Mineral Oil/Petrolatum, White Ophth Oint 3.5 Gm) 1 applic OU Q4HR PRN PRN Reason: Dry Eye(s) Nitroglycerin (Nitroglycerin 0.4 Mg Tab Subl) 0.4 mg SL Q5M PRN PRN Reason: Chest Pain Ondansetron HCl (Ondansetron 4 Mg/2 Ml Inj) 4 mg IV Q8H PRN PRN Reason: Nausea And Vomiting Senna/Docusate Sodium (Sennosides/Docusate Sodium 8.6/50 Mg Tab) 2 tab FEEDTUBE BID [facility] Last Admin: 05/26/22 10:41 Dose: 2 tab Sodium Chloride (Sodium Chloride 0.9% 10 Ml Flush Syringe) 10 ml IV BID [facility] Last Admin: 05/26/22 10:03 Dose: 10 ml Sodium Chloride (Sodium Chloride 0.9% 10 Ml Flush Syringe) 10 ml IV PRN PRN PRN Reason: LINE FLUSH Tramadol HCl (Tramadol 50 Mg Tab) 50 mg PO Q6H PRN PRN Reason: Pain, Moderate (4-6) Physical Examination - Physical Exam Narrative exam: Physical Exam: Constitutional: sedated, intubated, on the vent Head, Ears, Nose: Normocephalic, atraumatic. External ears, nose normal Eyes: Conjunctivae/corneas clear. No icterus. No ptosis. Neck: intubated Oral: intubated Cardiovascular: S1, S2 + Respiratory: AE fair bilaterally and equal GI: Soft, bowel sounds + Musculoskeletal: No pedal edema, no cyanosis. Skin: No rash or abscess Hem/Lymphatic: No palpable cervical or supraclavicular nodes. No lymphangitis Psych: no agitation Neurological: sedated, intubated, on the vent, exam limited - Constitutional Vitals: Vital Signs Temp Pulse Resp BP Pulse Ox 97.7 F 97 H 30 H 106/62 100 05/26/22 08:00 05/26/22 12:55 05/26/22 12:51 05/26/22 12:55 05/26/22 12:55 Temperature -Last 24 Hours Temperature 97.7 F Temperature 97.5 F Temperature 95.2 F Temperature 95 F Temperature 95 F Temperature 94.8 F Temperature 98.6 F Results - Labs CBC & Chem 7: 05/26/22 11:15 05/26/22 11:12 Labs: Abnormal lab results 05/25/22 05/25/22 05/25/22 Range/Units 15:55 15:55 15:55 WBC (4.5-11.0) K/mm3 RBC 3.46 L (3.65-5.03) M/mm3 Hgb (11.8-15.2) gm/dl Hct (35.5-45.6) % MCV 111 H (84-94) fl MCH 34 H (28-32) pg MCHC 31 L (32-34) % RDW 17.9 H (13.2-15.2) % Plt Count 125 L (140-440) K/mm3 Lymphocytes # (Manual) 1.1 L (1.2-5.4) K/mm3 PT 20.2 H (12.2-14.9) Sec. INR 1.52 H (0.87-1.13) APTT (24.2-36.6) Sec. D-Dimer 879.09 H (0-234) ng/mlDDU Heparin Anti-Xa Level (0.3-0.7) U.I./ml ABG pH (7.350-7.450) pH Units ABG pO2 (80.0-90.0) mm Hg ABG HCO3 (20.0-26.0) mmol/L ABG O2 Saturation (95.0-99.0) % ABG Base Excess (-2.0-3.0) mmol/L ABG Hemoglobin (14.0-18.0) gm/dl Oxyhemoglobin (95.0-99.0) % Sodium 136 L (137-145) mmol/L Potassium (3.6-5.0) mmol/L Chloride 88.6 L (98-107) mmol/L Carbon Dioxide 14 L (22-30) mmol/L BUN 47 H (9-20) mg/dL Creatinine 2.7 H (0.8-1.3) mg/dL Glucose 418 H (75-100) mg/dL POC Glucose (70-105) mg/dL Calcium (8.4-10.2) mg/dL Phosphorus (2.5-4.5) mg/dL Magnesium (1.7-2.3) mg/dL Ferritin (30.0-300.0) ng/mL AST 57 H (5-40) units/L Lactate Dehydrogenase (91-180) units/L Troponin T 0.230 H* (0.00-0.029) ng/mL C-Reactive Protein (0.00-1.30) mg/dL Total Protein 4.7 L (6.3-8.2) g/dL Albumin 3.0 L (3.9-5) g/dL HDL Cholesterol 95 H (40-59) mg/dL Urine WBC (Auto) (0.0-6.0) /HPF Urine Creatinine (0.1-20.0) mg/dL SARS-CoV-2 (PCR) (Negative) 05/25/22 05/25/22 05/25/22 Range/Units 17:59 22:38 22:38 WBC (4.5-11.0) K/mm3 RBC (3.65-5.03) M/mm3 Hgb (11.8-15.2) gm/dl Hct (35.5-45.6) % MCV (84-94) fl MCH (28-32) pg MCHC (32-34) % RDW (13.2-15.2) % Plt Count (140-440) K/mm3 Lymphocytes # (Manual) (1.2-5.4) K/mm3 PT (12.2-14.9) Sec. INR (0.87-1.13) APTT (24.2-36.6) Sec. D-Dimer (0-234) ng/mlDDU Heparin Anti-Xa Level (0.3-0.7) U.I./ml ABG pH (7.350-7.450) pH Units ABG pO2 (80.0-90.0) mm Hg ABG HCO3 (20.0-26.0) mmol/L ABG O2 Saturation (95.0-99.0) % ABG Base Excess (-2.0-3.0) mmol/L ABG Hemoglobin (14.0-18.0) gm/dl Oxyhemoglobin (95.0-99.0) % Sodium (137-145) mmol/L Potassium (3.6-5.0) mmol/L Chloride (98-107) mmol/L Carbon Dioxide (22-30) mmol/L BUN (9-20) mg/dL Creatinine (0.8-1.3) mg/dL Glucose (75-100) mg/dL POC Glucose (70-105) mg/dL Calcium (8.4-10.2) mg/dL Phosphorus 12.00 H (2.5-4.5) mg/dL Magnesium 5.10 H 4.80 H (1.7-2.3) mg/dL Ferritin (30.0-300.0) ng/mL AST (5-40) units/L Lactate Dehydrogenase (91-180) units/L Troponin T 0.232 H* (0.00-0.029) ng/mL C-Reactive Protein (0.00-1.30) mg/dL Total Protein (6.3-8.2) g/dL Albumin (3.9-5) g/dL HDL Cholesterol (40-59) mg/dL Urine WBC (Auto) (0.0-6.0) /HPF Urine Creatinine (0.1-20.0) mg/dL SARS-CoV-2 (PCR) (Negative) 05/25/22 05/25/22 05/25/22 Range/Units 22:38 22:38 22:38 WBC (4.5-11.0) K/mm3 RBC (3.65-5.03) M/mm3 Hgb 11.5 L (11.8-15.2) gm/dl Hct (35.5-45.6) % MCV (84-94) fl MCH (28-32) pg MCHC (32-34) % RDW (13.2-15.2) % Plt Count 87 L (140-440) K/mm3 Lymphocytes # (Manual) (1.2-5.4) K/mm3 PT 56.8 H (12.2-14.9) Sec. INR 5.34 H* (0.87-1.13) APTT 70.4 H* (24.2-36.6) Sec. D-Dimer (0-234) ng/mlDDU Heparin Anti-Xa Level (0.3-0.7) U.I./ml ABG pH (7.350-7.450) pH Units ABG pO2 (80.0-90.0) mm Hg ABG HCO3 (20.0-26.0) mmol/L ABG O2 Saturation (95.0-99.0) % ABG Base Excess (-2.0-3.0) mmol/L ABG Hemoglobin (14.0-18.0) gm/dl Oxyhemoglobin (95.0-99.0) % Sodium 135 L (137-145) mmol/L Potassium (3.6-5.0) mmol/L Chloride 95.9 L (98-107) mmol/L Carbon Dioxide 7 L* D (22-30) mmol/L BUN 46 H (9-20) mg/dL Creatinine 2.7 H (0.8-1.3) mg/dL Glucose 362 H (75-100) mg/dL POC Glucose (70-105) mg/dL Calcium 8.2 L (8.4-10.2) mg/dL Phosphorus (2.5-4.5) mg/dL Magnesium (1.7-2.3) mg/dL Ferritin (30.0-300.0) ng/mL AST (5-40) units/L Lactate Dehydrogenase (91-180) units/L Troponin T (0.00-0.029) ng/mL C-Reactive Protein (0.00-1.30) mg/dL Total Protein (6.3-8.2) g/dL Albumin (3.9-5) g/dL HDL Cholesterol (40-59) mg/dL Urine WBC (Auto) (0.0-6.0) /HPF Urine Creatinine (0.1-20.0) mg/dL SARS-CoV-2 (PCR) (Negative) 05/25/22 05/25/22 05/26/22 Range/Units 23:30 Unknown 01:09 WBC (4.5-11.0) K/mm3 RBC (3.65-5.03) M/mm3 Hgb (11.8-15.2) gm/dl Hct (35.5-45.6) % MCV (84-94) fl MCH (28-32) pg MCHC (32-34) % RDW (13.2-15.2) % Plt Count (140-440) K/mm3 Lymphocytes # (Manual) (1.2-5.4) K/mm3 PT (12.2-14.9) Sec. INR (0.87-1.13) APTT (24.2-36.6) Sec. D-Dimer (0-234) ng/mlDDU Heparin Anti-Xa Level (0.3-0.7) U.I./ml ABG pH 7.141 L* (7.350-7.450) pH Units ABG pO2 171.4 H (80.0-90.0) mm Hg ABG HCO3 9.4 L (20.0-26.0) mmol/L ABG O2 Saturation (95.0-99.0) % ABG Base Excess -18.2 L (-2.0-3.0) mmol/L ABG Hemoglobin 10.4 L (14.0-18.0) gm/dl Oxyhemoglobin (95.0-99.0) % Sodium (137-145) mmol/L Potassium (3.6-5.0) mmol/L Chloride (98-107) mmol/L Carbon Dioxide (22-30) mmol/L BUN (9-20) mg/dL Creatinine (0.8-1.3) mg/dL Glucose (75-100) mg/dL POC Glucose 326 H (70-105) mg/dL Calcium (8.4-10.2) mg/dL Phosphorus (2.5-4.5) mg/dL Magnesium (1.7-2.3) mg/dL Ferritin (30.0-300.0) ng/mL AST (5-40) units/L Lactate Dehydrogenase (91-180) units/L Troponin T 0.232 H* (0.00-0.029) ng/mL C-Reactive Protein (0.00-1.30) mg/dL Total Protein (6.3-8.2) g/dL Albumin (3.9-5) g/dL HDL Cholesterol (40-59) mg/dL Urine WBC (Auto) (0.0-6.0) /HPF Urine Creatinine (0.1-20.0) mg/dL SARS-CoV-2 (PCR) (Negative) 05/26/22 05/26/22 05/26/22 Range/Units 01:15 02:30 03:15 WBC (4.5-11.0) K/mm3 RBC (3.65-5.03) M/mm3 Hgb (11.8-15.2) gm/dl Hct (35.5-45.6) % MCV (84-94) fl MCH (28-32) pg MCHC (32-34) % RDW (13.2-15.2) % Plt Count (140-440) K/mm3 Lymphocytes # (Manual) (1.2-5.4) K/mm3 PT (12.2-14.9) Sec. INR (0.87-1.13) APTT (24.2-36.6) Sec. D-Dimer (0-234) ng/mlDDU Heparin Anti-Xa Level (0.3-0.7) U.I./ml ABG pH (7.350-7.450) pH Units ABG pO2 (80.0-90.0) mm Hg ABG HCO3 (20.0-26.0) mmol/L ABG O2 Saturation (95.0-99.0) % ABG Base Excess (-2.0-3.0) mmol/L ABG Hemoglobin (14.0-18.0) gm/dl Oxyhemoglobin (95.0-99.0) % Sodium 135 L (137-145) mmol/L Potassium (3.6-5.0) mmol/L Chloride 96.4 L (98-107) mmol/L Carbon Dioxide 11 L (22-30) mmol/L BUN 44 H (9-20) mg/dL Creatinine 2.6 H (0.8-1.3) mg/dL Glucose 381 H (75-100) mg/dL POC Glucose 335 H (70-105) mg/dL Calcium 7.5 L (8.4-10.2) mg/dL Phosphorus (2.5-4.5) mg/dL Magnesium (1.7-2.3) mg/dL Ferritin (30.0-300.0) ng/mL AST (5-40) units/L Lactate Dehydrogenase (91-180) units/L Troponin T 0.827 H* D (0.00-0.029) ng/mL C-Reactive Protein (0.00-1.30) mg/dL Total Protein (6.3-8.2) g/dL Albumin (3.9-5) g/dL HDL Cholesterol (40-59) mg/dL Urine WBC (Auto) (0.0-6.0) /HPF Urine Creatinine (0.1-20.0) mg/dL SARS-CoV-2 (PCR) (Negative) 05/26/22 05/26/22 05/26/22 Range/Units 03:15 03:48 04:48 WBC (4.5-11.0) K/mm3 RBC (3.65-5.03) M/mm3 Hgb (11.8-15.2) gm/dl Hct (35.5-45.6) % MCV (84-94) fl MCH (28-32) pg MCHC (32-34) % RDW (13.2-15.2) % Plt Count (140-440) K/mm3 Lymphocytes # (Manual) (1.2-5.4) K/mm3 PT (12.2-14.9) Sec. INR (0.87-1.13) APTT (24.2-36.6) Sec. D-Dimer (0-234) ng/mlDDU Heparin Anti-Xa Level 2.30 H (0.3-0.7) U.I./ml ABG pH (7.350-7.450) pH Units ABG pO2 (80.0-90.0) mm Hg ABG HCO3 (20.0-26.0) mmol/L ABG O2 Saturation (95.0-99.0) % ABG Base Excess (-2.0-3.0) mmol/L ABG Hemoglobin (14.0-18.0) gm/dl Oxyhemoglobin (95.0-99.0) % Sodium (137-145) mmol/L Potassium (3.6-5.0) mmol/L Chloride (98-107) mmol/L Carbon Dioxide (22-30) mmol/L BUN (9-20) mg/dL Creatinine (0.8-1.3) mg/dL Glucose (75-100) mg/dL POC Glucose 319 H 309 H (70-105) mg/dL Calcium (8.4-10.2) mg/dL Phosphorus (2.5-4.5) mg/dL Magnesium (1.7-2.3) mg/dL Ferritin (30.0-300.0) ng/mL AST (5-40) units/L Lactate Dehydrogenase (91-180) units/L Troponin T (0.00-0.029) ng/mL C-Reactive Protein (0.00-1.30) mg/dL Total Protein (6.3-8.2) g/dL Albumin (3.9-5) g/dL HDL Cholesterol (40-59) mg/dL Urine WBC (Auto) (0.0-6.0) /HPF Urine Creatinine (0.1-20.0) mg/dL SARS-CoV-2 (PCR) (Negative) 05/26/22 05/26/22 05/26/22 Range/Units 05:55 06:02 06:04 WBC (4.5-11.0) K/mm3 RBC (3.65-5.03) M/mm3 Hgb (11.8-15.2) gm/dl Hct (35.5-45.6) % MCV (84-94) fl MCH (28-32) pg MCHC (32-34) % RDW (13.2-15.2) % Plt Count (140-440) K/mm3 Lymphocytes # (Manual) (1.2-5.4) K/mm3 PT (12.2-14.9) Sec. INR (0.87-1.13) APTT (24.2-36.6) Sec. D-Dimer (0-234) ng/mlDDU Heparin Anti-Xa Level (0.3-0.7) U.I./ml ABG pH (7.350-7.450) pH Units ABG pO2 (80.0-90.0) mm Hg ABG HCO3 (20.0-26.0) mmol/L ABG O2 Saturation (95.0-99.0) % ABG Base Excess (-2.0-3.0) mmol/L ABG Hemoglobin (14.0-18.0) gm/dl Oxyhemoglobin (95.0-99.0) % Sodium 135 L (137-145) mmol/L Potassium 3.4 L (3.6-5.0) mmol/L Chloride 97.3 L (98-107) mmol/L Carbon Dioxide 13 L (22-30) mmol/L BUN 44 H (9-20) mg/dL Creatinine 2.8 H (0.8-1.3) mg/dL Glucose 223 H (75-100) mg/dL POC Glucose 215 H 226 H (70-105) mg/dL Calcium 8.0 L (8.4-10.2) mg/dL Phosphorus (2.5-4.5) mg/dL Magnesium (1.7-2.3) mg/dL Ferritin (30.0-300.0) ng/mL AST (5-40) units/L Lactate Dehydrogenase (91-180) units/L Troponin T (0.00-0.029) ng/mL C-Reactive Protein (0.00-1.30) mg/dL Total Protein (6.3-8.2) g/dL Albumin (3.9-5) g/dL HDL Cholesterol (40-59) mg/dL Urine WBC (Auto) (0.0-6.0) /HPF Urine Creatinine (0.1-20.0) mg/dL SARS-CoV-2 (PCR) (Negative) 05/26/22 05/26/22 05/26/22 Range/Units 07:07 08:19 09:06 WBC (4.5-11.0) K/mm3 RBC (3.65-5.03) M/mm3 Hgb (11.8-15.2) gm/dl Hct (35.5-45.6) % MCV (84-94) fl MCH (28-32) pg MCHC (32-34) % RDW (13.2-15.2) % Plt Count (140-440) K/mm3 Lymphocytes # (Manual) (1.2-5.4) K/mm3 PT (12.2-14.9) Sec. INR (0.87-1.13) APTT (24.2-36.6) Sec. D-Dimer (0-234) ng/mlDDU Heparin Anti-Xa Level (0.3-0.7) U.I./ml ABG pH (7.350-7.450) pH Units ABG pO2 (80.0-90.0) mm Hg ABG HCO3 (20.0-26.0) mmol/L ABG O2 Saturation (95.0-99.0) % ABG Base Excess (-2.0-3.0) mmol/L ABG Hemoglobin (14.0-18.0) gm/dl Oxyhemoglobin (95.0-99.0) % Sodium (137-145) mmol/L Potassium (3.6-5.0) mmol/L Chloride (98-107) mmol/L Carbon Dioxide (22-30) mmol/L BUN (9-20) mg/dL Creatinine (0.8-1.3) mg/dL Glucose (75-100) mg/dL POC Glucose 208 H 199 H 159 H (70-105) mg/dL Calcium (8.4-10.2) mg/dL Phosphorus (2.5-4.5) mg/dL Magnesium (1.7-2.3) mg/dL Ferritin (30.0-300.0) ng/mL AST (5-40) units/L Lactate Dehydrogenase (91-180) units/L Troponin T (0.00-0.029) ng/mL C-Reactive Protein (0.00-1.30) mg/dL Total Protein (6.3-8.2) g/dL Albumin (3.9-5) g/dL HDL Cholesterol (40-59) mg/dL Urine WBC (Auto) (0.0-6.0) /HPF Urine Creatinine (0.1-20.0) mg/dL SARS-CoV-2 (PCR) (Negative) 05/26/22 05/26/22 05/26/22 Range/Units 09:20 09:31 10:01 WBC (4.5-11.0) K/mm3 RBC (3.65-5.03) M/mm3 Hgb (11.8-15.2) gm/dl Hct (35.5-45.6) % MCV (84-94) fl MCH (28-32) pg MCHC (32-34) % RDW (13.2-15.2) % Plt Count (140-440) K/mm3 Lymphocytes # (Manual) (1.2-5.4) K/mm3 PT (12.2-14.9) Sec. INR (0.87-1.13) APTT (24.2-36.6) Sec. D-Dimer (0-234) ng/mlDDU Heparin Anti-Xa Level (0.3-0.7) U.I./ml ABG pH 7.219 L (7.350-7.450) pH Units ABG pO2 60.3 L (80.0-90.0) mm Hg ABG HCO3 10.7 L (20.0-26.0) mmol/L ABG O2 Saturation 86.2 L (95.0-99.0) % ABG Base Excess -15.5 L (-2.0-3.0) mmol/L ABG Hemoglobin 10.7 L (14.0-18.0) gm/dl Oxyhemoglobin 85.1 L (95.0-99.0) % Sodium (137-145) mmol/L Potassium (3.6-5.0) mmol/L Chloride (98-107) mmol/L Carbon Dioxide (22-30) mmol/L BUN (9-20) mg/dL Creatinine (0.8-1.3) mg/dL Glucose (75-100) mg/dL POC Glucose 158 H (70-105) mg/dL Calcium (8.4-10.2) mg/dL Phosphorus (2.5-4.5) mg/dL Magnesium (1.7-2.3) mg/dL Ferritin (30.0-300.0) ng/mL AST (5-40) units/L Lactate Dehydrogenase (91-180) units/L Troponin T (0.00-0.029) ng/mL C-Reactive Protein (0.00-1.30) mg/dL Total Protein (6.3-8.2) g/dL Albumin (3.9-5) g/dL HDL Cholesterol (40-59) mg/dL Urine WBC (Auto) (0.0-6.0) /HPF Urine Creatinine (0.1-20.0) mg/dL SARS-CoV-2 (PCR) Positive A (Negative) 05/26/22 05/26/22 05/26/22 Range/Units 10:55 11:05 11:12 WBC (4.5-11.0) K/mm3 RBC (3.65-5.03) M/mm3 Hgb (11.8-15.2) gm/dl Hct (35.5-45.6) % MCV (84-94) fl MCH (28-32) pg MCHC (32-34) % RDW (13.2-15.2) % Plt Count (140-440) K/mm3 Lymphocytes # (Manual) (1.2-5.4) K/mm3 PT (12.2-14.9) Sec. INR (0.87-1.13) APTT (24.2-36.6) Sec. D-Dimer (0-234) ng/mlDDU Heparin Anti-Xa Level (0.3-0.7) U.I./ml ABG pH 7.267 L (7.350-7.450) pH Units ABG pO2 (80.0-90.0) mm Hg ABG HCO3 10.2 L (20.0-26.0) mmol/L ABG O2 Saturation (95.0-99.0) % ABG Base Excess -14.9 L (-2.0-3.0) mmol/L ABG Hemoglobin 11.9 L (14.0-18.0) gm/dl Oxyhemoglobin 94.3 L (95.0-99.0) % Sodium (137-145) mmol/L Potassium (3.6-5.0) mmol/L Chloride (98-107) mmol/L Carbon Dioxide 12 L (22-30) mmol/L BUN 45 H (9-20) mg/dL Creatinine 3.0 H (0.8-1.3) mg/dL Glucose 121 H (75-100) mg/dL POC Glucose 127 H (70-105) mg/dL Calcium 7.4 L (8.4-10.2) mg/dL Phosphorus 9.00 H D (2.5-4.5) mg/dL Magnesium 3.90 H (1.7-2.3) mg/dL Ferritin (30.0-300.0) ng/mL AST (5-40) units/L Lactate Dehydrogenase (91-180) units/L Troponin T (0.00-0.029) ng/mL C-Reactive Protein (0.00-1.30) mg/dL Total Protein (6.3-8.2) g/dL Albumin (3.9-5) g/dL HDL Cholesterol (40-59) mg/dL Urine WBC (Auto) (0.0-6.0) /HPF Urine Creatinine (0.1-20.0) mg/dL SARS-CoV-2 (PCR) (Negative) 05/26/22 05/26/22 05/26/22 Range/Units 11:12 11:12 11:12 WBC (4.5-11.0) K/mm3 RBC (3.65-5.03) M/mm3 Hgb (11.8-15.2) gm/dl Hct (35.5-45.6) % MCV (84-94) fl MCH (28-32) pg MCHC (32-34) % RDW (13.2-15.2) % Plt Count (140-440) K/mm3 Lymphocytes # (Manual) (1.2-5.4) K/mm3 PT 29.7 H (12.2-14.9) Sec. INR 2.44 H (0.87-1.13) APTT 135.4 H* (24.2-36.6) Sec. D-Dimer 667.33 H (0-234) ng/mlDDU Heparin Anti-Xa Level (0.3-0.7) U.I./ml ABG pH (7.350-7.450) pH Units ABG pO2 (80.0-90.0) mm Hg ABG HCO3 (20.0-26.0) mmol/L ABG O2 Saturation (95.0-99.0) % ABG Base Excess (-2.0-3.0) mmol/L ABG Hemoglobin (14.0-18.0) gm/dl Oxyhemoglobin (95.0-99.0) % Sodium (137-145) mmol/L Potassium (3.6-5.0) mmol/L Chloride (98-107) mmol/L Carbon Dioxide (22-30) mmol/L BUN (9-20) mg/dL Creatinine (0.8-1.3) mg/dL Glucose (75-100) mg/dL POC Glucose (70-105) mg/dL Calcium (8.4-10.2) mg/dL Phosphorus (2.5-4.5) mg/dL Magnesium (1.7-2.3) mg/dL Ferritin 6884.0 H (30.0-300.0) ng/mL AST (5-40) units/L Lactate Dehydrogenase (91-180) units/L Troponin T (0.00-0.029) ng/mL C-Reactive Protein 20.20 H (0.00-1.30) mg/dL Total Protein (6.3-8.2) g/dL Albumin (3.9-5) g/dL HDL Cholesterol (40-59) mg/dL Urine WBC (Auto) (0.0-6.0) /HPF Urine Creatinine (0.1-20.0) mg/dL SARS-CoV-2 (PCR) (Negative) 05/26/22 05/26/22 05/26/22 Range/Units 11:12 11:15 12:06 WBC 4.4 L (4.5-11.0) K/mm3 RBC 3.22 L (3.65-5.03) M/mm3 Hgb 11.0 L (11.8-15.2) gm/dl Hct 34.1 L D (35.5-45.6) % MCV 106 H (84-94) fl MCH 34 H (28-32) pg MCHC (32-34) % RDW 17.2 H (13.2-15.2) % Plt Count 52 L (140-440) K/mm3 Lymphocytes # (Manual) (1.2-5.4) K/mm3 PT (12.2-14.9) Sec. INR (0.87-1.13) APTT (24.2-36.6) Sec. D-Dimer (0-234) ng/mlDDU Heparin Anti-Xa Level (0.3-0.7) U.I./ml ABG pH (7.350-7.450) pH Units ABG pO2 (80.0-90.0) mm Hg ABG HCO3 (20.0-26.0) mmol/L ABG O2 Saturation (95.0-99.0) % ABG Base Excess (-2.0-3.0) mmol/L ABG Hemoglobin (14.0-18.0) gm/dl Oxyhemoglobin (95.0-99.0) % Sodium (137-145) mmol/L Potassium (3.6-5.0) mmol/L Chloride (98-107) mmol/L Carbon Dioxide (22-30) mmol/L BUN (9-20) mg/dL Creatinine (0.8-1.3) mg/dL Glucose (75-100) mg/dL POC Glucose 135 H (70-105) mg/dL Calcium (8.4-10.2) mg/dL Phosphorus (2.5-4.5) mg/dL Magnesium (1.7-2.3) mg/dL Ferritin (30.0-300.0) ng/mL AST (5-40) units/L Lactate Dehydrogenase 639 H (91-180) units/L Troponin T (0.00-0.029) ng/mL C-Reactive Protein (0.00-1.30) mg/dL Total Protein (6.3-8.2) g/dL Albumin (3.9-5) g/dL HDL Cholesterol (40-59) mg/dL Urine WBC (Auto) (0.0-6.0) /HPF Urine Creatinine (0.1-20.0) mg/dL SARS-CoV-2 (PCR) (Negative) 05/26/22 05/26/22 05/26/22 Range/Units 13:04 Unknown Unknown WBC (4.5-11.0) K/mm3 RBC (3.65-5.03) M/mm3 Hgb (11.8-15.2) gm/dl Hct (35.5-45.6) % MCV (84-94) fl MCH (28-32) pg MCHC (32-34) % RDW (13.2-15.2) % Plt Count (140-440) K/mm3 Lymphocytes # (Manual) (1.2-5.4) K/mm3 PT (12.2-14.9) Sec. INR (0.87-1.13) APTT (24.2-36.6) Sec. D-Dimer (0-234) ng/mlDDU Heparin Anti-Xa Level (0.3-0.7) U.I./ml ABG pH (7.350-7.450) pH Units ABG pO2 (80.0-90.0) mm Hg ABG HCO3 (20.0-26.0) mmol/L ABG O2 Saturation (95.0-99.0) % ABG Base Excess (-2.0-3.0) mmol/L ABG Hemoglobin (14.0-18.0) gm/dl Oxyhemoglobin (95.0-99.0) % Sodium (137-145) mmol/L Potassium (3.6-5.0) mmol/L Chloride (98-107) mmol/L Carbon Dioxide (22-30) mmol/L BUN (9-20) mg/dL Creatinine (0.8-1.3) mg/dL Glucose (75-100) mg/dL POC Glucose 172 H (70-105) mg/dL Calcium (8.4-10.2) mg/dL Phosphorus (2.5-4.5) mg/dL Magnesium (1.7-2.3) mg/dL Ferritin (30.0-300.0) ng/mL AST (5-40) units/L Lactate Dehydrogenase (91-180) units/L Troponin T (0.00-0.029) ng/mL C-Reactive Protein (0.00-1.30) mg/dL Total Protein (6.3-8.2) g/dL Albumin (3.9-5) g/dL HDL Cholesterol (40-59) mg/dL Urine WBC (Auto) 29.0 H (0.0-6.0) /HPF Urine Creatinine 40.7 H (0.1-20.0) mg/dL SARS-CoV-2 (PCR) (Negative) - Imaging and Cardiology Chest x-ray: report reviewed, image reviewed (no pneumonia seen) Assessment and Plan Cultures: SARS CoV2 PCR: Positive A/P: 77-year-old male with unknown past medical history was admitted to the hospital yesterday with complaints of chest pain possible STEMI. Upon evaluation in the ED by cardiology, EKG did not show STEMI. Now with: #Shock: ? Cardiogenic. No fever, no leukocytosis. No obvious source of infection identified on CT chest, abdomen and pelvis. Procalcitonin is elevated however difficult to interpret in the setting of renal failure as well as multiorgan dysfunction and shock requiring 3 pressors #COVID-19: ferritin 6884, CRP 20.2, procalcitonin 128.9, creatinine today of 3.0, troponin of 0.8. #Acute hypoxic respiratory failure: On mechanical ventilation #Acute renal failure #Leukopenia, thrombocytopenia #Elevated troponin, CHF: Echo showed an EF of 15 to 20% Recs: Not a candidate for remdesivir due to renal failure Okay to continue ceftriaxone for now continue IV/PO Dexamethasone x 10 days Not a candidate for Actemra given multiorgan dysfunction and it does not appear that respiratory failure is from COVID-19 guarded prognosis Kyler Garcia MD, FACP, [facility] ([facility] O: [phone] F: [phone] C: [phone]
[2022-05-26] MEDS: DOPamine 800 MG/D5W 250ML 800 MG/250 ML BAG IV SCH (16:51)
[2022-05-26] MEDS ORDERED: LACTATED RINGERS 1,000 ML IV ONE (17:00)
[2022-05-26] MEDS ORDERED: DEXTROSE 50% IN WATER (25GM) 50 ML SYRINGE IV PRN (17:47)
[2022-05-26] MEDS ORDERED: INSULIN REGULAR, HUMAN 100 UNITS/1 ML SUB-Q SCH (18:00)
[2022-05-26] MEDS ORDERED: SODIUM CHLORIDE 0.9% 500 ML 500 ML ONE (19:32)
[2022-05-26] MEDS: SODIUM CHLORIDE 0.9% 500 ML 500 ML IV SCH (20:00)
[2022-05-26] MEDS ORDERED: ATROPINE 0.1% (1 MG/10 ML) CARDIAC SYRINGE ONE (21:03)
[2022-05-26] MEDS ORDERED: SODIUM CHLORIDE 0.9% 250ML 250 ML IV ONE (21:36)
[2022-05-26 21:47] LABS: Albumin 1.8 g/dL (3.9-5); Calcium 6.7 mg/dL (8.4-10.2)
[2022-05-26] MEDS ORDERED: ATROPINE 1 MG/ML VIAL IV ONE (22:00)
[2022-05-26] MEDS ORDERED: INSULIN REGULAR, HUMAN 100 UNITS/1 ML IV ONE (22:10)
[2022-05-26] MEDS ORDERED: DEXTROSE 50% IN WATER (25GM) 50 ML SYRINGE IV ONE (22:11)
[2022-05-26] MEDS ORDERED: CALCIUM CHLORIDE 1,000 MG/10 ML SYRINGE IV ONE (22:11)
[2022-05-26] MEDS ORDERED: SODIUM POLYSTYRENE 15 GM/60 ML ORAL LIQD PO ONE (22:12)
[2022-05-26] MEDS: INSULIN REGULAR, HUMAN 100 UNITS/1 ML SUB-Q SCH (22:42)
[2022-05-27] MEDS ORDERED: SODIUM BICARB 8.4% 50 MEQ/50 ML SYRINGE IV ONE ×4 (01:01→10:00)
[2022-05-27] MEDS ORDERED: SODIUM POLYSTYRENE 15 GM/60 ML ORAL LIQD PO ONE (01:01)
[2022-05-27 01:17] LABS: Calcium 7.2 mg/dL (8.4-10.2)
[2022-05-27 01:38] LABS: ABG Base Excess -17.4 mmol/L (-2.0-3.0); ABG HCO3 9.1 mmol/L (20.0-26.0); ABG Methemoglobin 0.8 % (0.0-1.5); ABG Oxygen Saturation 98.9 % (95.0-99.0); ABG PCO2 24.3 mm Hg
[2022-05-27 01:55] LABS: ABG PH 7.192 pH Units (7.350-7.450)
[2022-05-27] MEDS ORDERED: SODIUM CHLORIDE 0.9% 250ML 250 ML IV ONE (01:57)
[2022-05-27] MEDS: DOPamine 800 MG/D5W 250ML 800 MG/250 ML BAG IV SCH (02:02)
[2022-05-27] MEDS: SODIUM CHLORIDE 0.9% 500 ML 500 ML IV SCH (02:04)
[2022-05-27] MEDS: INSULIN REGULAR, HUMAN 100 UNITS/1 ML SUB-Q SCH ×2 (02:08→06:23)
[2022-05-27] MEDS: NORepinephrine/NS 8 MG-250 ML 8 MG/250 ML INFUS..BTL IV SCH ×2 (02:59→06:41)
[2022-05-27] MEDS ORDERED: EPINEPHrine 1 MG/1 ML 16 MG in SODIUM CHLORIDE 0.9% 250ML 234 ML IV SCH (03:00)
[2022-05-27] MEDS ORDERED: SODIUM CHLORIDE 0.9% 500 ML 500 ML IV ONE (03:49)
[2022-05-27 03:52] LABS: Hematocrit 30.5 % (35.5-45.6); Hemoglobin 9.4 gm/dl (11.8-15.2); Mean Corpuscular HGB Conc 31 % (32-34); Red Blood Count 2.71 M/mm3 (3.65-5.03); Red Cell Distribution Width 18.4 % (13.2-15.2)
[2022-05-27 03:54] LABS: Mean Corpuscular Volume 113 fl (84-94)
[2022-05-27 03:57] LABS: Platelet Count 16 K/mm3 (140-440)
[2022-05-27 04:14] LABS: Calcium 6.8 mg/dL (8.4-10.2)
[2022-05-27] MEDS: VASOPRESSIN 20 UNIT in SODIUM CHLORIDE 0.9% 100 ML IV SCH (04:15)
[2022-05-27] MEDS: SODIUM BICARBONATE 150 MEQ in DEXTROSE 5% IN WATER 1,000 ML IV SCH (04:58)
[2022-05-27] MEDS ORDERED: DEXTROSE 50% IN WATER (25GM) 50 ML SYRINGE IV ONE (06:08)
[2022-05-27] MEDS ORDERED: EPINEPHrine 1 MG/10 ML SYRINGE ONE (06:08)
[2022-05-27] MEDS ORDERED: CALCIUM CHLORIDE 1,000 MG/10 ML SYRINGE IV ONE ×2 (06:08→10:00)
--- NOTE | 2022-05-27 06:57 | Event Note ---
Date: 05/27/22 MINERVA GUERA called on 77-year-old male who has been on admission for DKA, chest pain and who is also COVID-positive. Resuscitative measures were commenced according to ACLS protocol. Patient had multiple rounds of epi, sodium bicarb, calcium gluconate, insulin and glucose. Patient was coded multiple times today and each time he has had ROSC for a few minutes to an hour. Family was immediately notified and were by the bedside. Prognosis however appears very poor.
[2022-05-27] MEDS ORDERED: DOBUTamine/D5W 500 MG/250 ML 500 MG/250 ML BAG IV ONE (08:34)
--- NOTE | 2022-05-27 08:57 | Procedure Note ---
Date of procedure: 05/27/22 Pre-op diagnosis: Cardiogenic-septic shock Post-op diagnosis: same Procedure: Right femoral arterial line placement under ultrasound guidance Anesthesia: none Surgeon: MATI SCHUSTER Estimated blood loss: none Condition: critical Disposition: ICU
--- NOTE | 2022-05-27 09:03 | Event Note ---
Date: 05/27/22 s/p cardiopulmonary arrest x6 overnight and early hours of this morning. remains critically ill, with 4 pressor shock Hyperkalemia, acute renal failure, ARDS, thrombocytopenia, resp failure, COVID, cardiomyopathy EF 15% and encephalopathy Poor prognosis and high mortality. Discussed this with the patient's and 3 daughter. They understand the gravity of the situation. All their questions were answered. At this time in the event of cardiopulmonary arrest, they do not want resuscitation. They however do not want to withdraw care. They have asked for permission to see him, and I have granted permission for them to visit via the window. They understand the inherent risk of exposure. My discussions were in the presence of the RISHABH-Isa Dickerson
--- NOTE | 2022-05-27 09:31 | Consultation ---
History of Present Illness - History of Present Illness Thank you for the consultation ! Patient was evaluated today, My assessment and plan are as follows Acute severe renal failure in a patient who most likely has severe acute tubular necrosis, currently doing poorly on ventilator severe lactic acidosis hyperkalemia as well as metabolic acidosis, discussed with attending physician, patient is currently not suitable for dialysis and dialysis alone is not going to change her outcome overall, patient is also on multiple vasopressors, very fragile Admitted with altered mental status as well as chest pain, on May 25, 2022, creatinine was 2.7 with a bicarb of 14 sodium 136 hemoglobin was 11.8, she was found unresponsive at home, #Lactic acidosis, hyperkalemia, resulting from sepsis-like picture, respiratory failure worsening ABGs, multiple vasopressors, patient is critically ill, prognosis appears to be very poor as her lactic acid has increased from 15-26, progressively she is becoming more acidotic bicarbonate was around 6, albumin is only 1.8, #Multiorgan failure like picture, in renal failure, respiratory failure, severe cardiomyopathy, patient is [id number]-year-old with multiple complex comorbidities and acutely decompensating in the ICU setting as well despite supportive care, Had a long discussion with [facility] attending physician Dr. Black, patient appears to be doing poorly, she is not a suitable candidate for hemodialysis, given that her prognosis is extremely poor and dialysis alone is not going to change her outcome in fact might pose some risk of as well. He is in the process of discussing care plan with the family, please continue to treat her medically At this time my opinion patient is not suitable for dialysis, continue to treat medically supportive care for now pending family decision. If there is any questions in regard to this patient renal care please feel free to call me at [phone] without any hesitation. Author: Shaq Geronimo M.D. [facility], [address] [place] [address] Tel; [phone] [employer] Source of information: From the current chart, patient is intubated doing very poorly, critically ill on vasopressors History of present illness 77-year-old female who has been admitted here found unresponsive at home noted to be in acute kidney injury upon admission creatinine was around 2.7, bicarbonate was in the 14 range, she is currently being followed by multiple disciplines and continues to worsen severe lactic acidosis, hypotension on vasopressors: Multiple, intubated currently, doing poorly discussed with [facility] attending physician, who is currently working with family about patient's care, she has been noted to have multiple comorbidities including but not limited to sepsis-like picture non-ST elevation [place] COVID-19 infection with multiple electrolytes abnormalities, has history of osteomyeloma, even with full supportive care patient is doing extremely poorly, there is progressive deter ioration of patient's labs as well as clinical condition, patient also does have severe cardiomyopathy ejection fraction 15 to 20%, Patient did receive CT with contrast on May 25 which shows right renal cyst and a complex cyst on the left kidney, no obstruction was noted Past medical history: Posterior myeloma Current allergies: Reviewed from the current chart Social history: Reviewed from the current chart Family history: Reviewed from the current chart Review of system: Positive for All other review of systems negative Physical examination Vitals: Reviewed General: No acute distress/unresponsive intubated doing poorly, HEENT: Oral mucosa moist no pallor or icterus Neck: Supple without any JVD thyromegaly or nodular mass Chest: Clear to auscultation Heart: Regular rate and rhythm S1-S2 heard no S3-S4 Abdomen: Soft nontender, bowel sounds present no renal bruit no suprapubic ma sses no CVA tenderness noted Extremity: Minimal edema dry skin no peripheral cyanosis Endocrine: Thyroid not enlarged Psychiatric: No agitation and aggression noted Musculoskeletal: No joint effusion noted Labs and x-rays: Reviewed from this admission Past History Past Medical History: other (Unable to obtain, reported patient has history of osteomyeloma) Past Surgical History: Other (Unable to obtain) Social history: other (Unable to obtain) Family history: other (Unable to obtain) Medications and Allergies Allergies Allergy/AdvReac Type Severity Reaction Status Date / Time No Known Allergies Allergy Verified 05/25/22 16:19 Active Meds: Active Medications Acetaminophen (Acetaminophen 325 Mg Tab) 650 mg PO Q6H PRN PRN Reason: Pain, Mild (1-3) Acetaminophen (Acetaminophen 650 Mg Rect Supp) 650 mg WI Q6H PRN PRN Reason: Pain MILD(1-3)/Fever >100.5/[place] Dexamethasone (Dexamethasone 4 Mg/Ml Vial) 8 mg IV QDAY WILLIAM Stop: 06/04/22 10:01 Last Admin: 05/26/22 17:55 Dose: 8 mg Dextrose (Dextrose 50% In Water (25gm) 50 Ml Syringe) 0 ml IV Q30MIN PRN; Protocol PRN Reason: Hypoglycemia Dextrose (Dextrose 50% In Water (25gm) 50 Ml Syringe) 50 ml IV Q30MIN PRN; Protocol PRN Reason: Hypoglycemia Hydrophilic Ointment (Lip Therapy Vaseline) 1 applic TP Q2HR PRN PRN Reason: Dry Lips NORepinephrine/NS 8 MG-250 ML (Norepinephrine/Ns 8 Mg-250 Ml (Double Conc)) 8 mg in 250 mls @ 3.75 mls/hr IV TITRATE WILLIAM; Protocol Last Admin: 05/27/22 06:41 Dose: 30 mcg/min, 56.25 mls/hr Vasopressin 20 unit/ Sodium (Chloride) 101 mls @ 9.09 mls/hr IV TITR WILLIAM; Protocol Last Admin: 05/27/22 04:15 Dose: 0.03 units/min, 9.09 mls/hr Dopamine HCl/Dextrose (Dopamine 800 Mg/D5w 250ml) 800 mg in 250 mls @ 2.977 mls/hr IV TITR WILLIAM; Protocol Last Titration: 05/27/22 02:41 Dose: 20 mcg/kg/min, 29.767 mls/hr Sodium Bicarbonate 150 meq/ (Dextrose) 1,150 mls @ 250 mls/hr IV DIRECT WILLIAM Last Admin: 05/27/22 04:58 Dose: 125 mls/hr Azithromycin (Zithromax/Ns) 500 mg in 250 mls @ 250 mls/hr IV Q24H WILLIAM Last Infusion: 05/26/22 19:49 Dose: Infused Ceftriaxone Sodium (Rocephin/Ns 2 Gm/100 Ml) 2 gm in 100 mls @ 200 mls/hr IV Q24H WILLIAM; Protocol Last Infusion: 05/26/22 19:49 Dose: Infused Sodium Chloride (Nacl 0.9% 500 Ml) 500 mls @ 5 mls/hr IV DIRECT WILLIAM Last Infusion: 05/27/22 02:41 Dose: 5 mls/hr Epinephrine 16 mg/ Sodium (Chloride) 250 mls @ 1.875 mls/hr IV TITR WILLIAM; Protocol Last Titration: 05/27/22 04:25 Dose: 10 mcg/min, 9.375 mls/hr Insulin Human Regular (Insulin Regular, Human 100 Units/1 Ml) 0 units SUB-Q Q4HR [facility]; Protocol Last Admin: 05/27/22 06:23 Dose: Not Given Magnesium Hydroxide (Magnesium Hydroxide (Mom) Oral Liqd Udc) 30 ml PO Q4H PRN PRN Reason: Constipation Morphine Sulfate (Morphine 4 Mg/1 Ml Inj) 2 mg IV Q5MIN PRN PRN Reason: Chest Pain unrelieved by NTG Multi-Ingred Cream/Lotion/Oil/Oint (Mineral Oil/Petrolatum, White Ophth Oint 3.5 Gm) 1 applic OU Q4HR PRN PRN Reason: Dry Eye(s) Nitroglycerin (Nitroglycerin 0.4 Mg Tab Subl) 0.4 mg SL Q5M PRN PRN Reason: Chest Pain Ondansetron HCl (Ondansetron 4 Mg/2 Ml Inj) 4 mg IV Q8H PRN PRN Reason: Nausea And Vomiting Pantoprazole Sodium (Pantoprazole 40 Mg Inj) 40 mg IV BID [facility] Stop: 05/30/22 23:59 Senna/Docusate Sodium (Sennosides/Docusate Sodium 8.6/50 Mg Tab) 2 tab FEEDTUBE BID [facility] Last Admin: 05/26/22 22:43 Dose: Not Given Sodium Chloride (Sodium Chloride 0.9% 10 Ml Flush Syringe) 10 ml IV BID [facility] Last Admin: 05/26/22 22:43 Dose: 10 ml Sodium Chloride (Sodium Chloride 0.9% 10 Ml Flush Syringe) 10 ml IV PRN PRN PRN Reason: LINE FLUSH Sodium Polystyrene Sulfonate (Sodium Polystyrene 15 Gm/60 Ml Oral Liqd) 60 gm WI ONCE@1000 [facility] Stop: 05/27/22 14:00 Tramadol HCl (Tramadol 50 Mg Tab) 50 mg PO Q6H PRN PRN Reason: Pain, Moderate (4-6) Exam - Vital Signs Vital signs: Vital Signs Pulse Resp 72 18 05/25/22 15:33 05/25/22 15:33 Results - Lab Results 05/27/22 03:30 05/27/22 03:30 Most recent lab results ABG pH 7.192 pH Units (7.350-7.450) L* 05/27/22 01:20 ABG pCO2 24.3 mm Hg 05/27/22 01:20 ABG pO2 179.0 mm Hg (80.0-90.0) H 05/27/22 01:20 ABG HCO3 9.1 mmol/L (20.0-26.0) L 05/27/22 01:20 ABG O2 Saturation 98.9 % (95.0-99.0) 05/27/22 01:20 Calcium 6.8 mg/dL (8.4-10.2) L 05/27/22 03:30 Phosphorus 14.30 mg/dL (2.5-4.5) H D 05/27/22 00:00 Magnesium 3.90 mg/dL (1.7-2.3) H 05/27/22 00:00 Urine Creatinine 40.7 mg/dL (0.1-20.0) H 05/26/22 Unknown Urine Sodium 94 mmol/L 05/26/22 Unknown
[2022-05-27 09:46] LABS: ABG Base Excess -22.5 mmol/L (-2.0-3.0); ABG HCO3 5.7 mmol/L (20.0-26.0); ABG Methemoglobin 4.8 % (0.0-1.5); ABG PCO2 20.5 mm Hg; ABG PO2 145.2 mm Hg (80.0-90.0)
[2022-05-27 09:48] LABS: ABG PH 7.062 pH Units (7.350-7.450)
--- NOTE | 2022-05-27 09:59 | Progress Note ---
Assessment and Plan Cultures: SARS CoV2 PCR: Positive 05/26/2022 blood culture: no growth A/P: 77-year-old male with unknown past medical history was admitted to the hospital yesterday with complaints of chest pain possible STEMI. Upon evaluation in the ED by cardiology, EKG did not show STEMI. Now with: #S/p cardiac arrest, multiple times #Refractory shock: ? Cardiogenic. No fever, no leukocytosis. No obvious source of infection identified on CT chest, abdomen and pelvis. Procalcitonin is elevated however difficult to interpret in the setting of renal failure as well as multiorgan dysfunction and shock requiring 3-4 pressors #COVID-19: ferritin 6884, CRP 20.2, procalcitonin 128.9, elevated creatinine, troponin of 0.8. #Acute hypoxic respiratory failure: On mechanical ventilation #Acute renal failure #Leukopenia, thrombocytopenia #Elevated troponin, CHF: Echo showed an EF of 15 to 20% Recs: Not a candidate for remdesivir due to renal failure continue ceftriaxone for now continue IV/PO Dexamethasone x 10 days Not a candidate for Actemra given multiorgan dysfunction and it does not appear that respiratory failure is from COVID-19, and impending mortality poor prognosis, impending mortality Kyler Garcia MD, FACP, [facility] ([facility] O: [phone] F: [phone] C: [phone] Subjective Date of service: 05/27/22 Principal diagnosis: Sepsis, altered mental status, NSTEMI suspect type II Interval history: Coded multiple times. Remains on multiple pressors. On the vent. Objective - Exam Narrative Exam: Physical Exam: Constitutional: sedated, intubated, on the vent Head, Ears, Nose: Normocephalic, atraumatic. External ears, nose normal Eyes: Conjunctivae/corneas clear. No icterus. No ptosis. Neck: intubated Oral: intubated Cardiovascular: S1, S2 + Respiratory: AE fair bilaterally and equal GI: Soft, bowel sounds - Musculoskeletal: No pedal edema, no cyanosis. Skin: No rash or abscess Hem/Lymphatic: No palpable cervical or supraclavicular nodes. No lymphangitis Psych: no agitation Neurological: sedated, intubated, on the vent, exam limited - Constitutional Vitals: Vital Signs Temp Pulse Resp BP Pulse Ox 99.1 F 58 L 31 H 59/31 59 L 05/27/22 03:54 05/27/22 09:30 05/27/22 09:40 05/27/22 09:40 05/27/22 08:25 Temperature -Last 24 Hours Temperature 99.1 F Temperature 99.3 F Temperature 98.4 F Temperature 99.1 F Temperature 98.4 F - Labs CBC & Chem 7: 05/27/22 03:30 05/27/22 03:30 Labs: Abnormal lab results 05/26/22 05/26/22 05/26/22 Range/Units 08:19 09:06 09:20 WBC (4.5-11.0) K/mm3 RBC (3.65-5.03) M/mm3 Hgb (11.8-15.2) gm/dl Hct (35.5-45.6) % MCV (84-94) fl MCH (28-32) pg MCHC (32-34) % RDW (13.2-15.2) % Plt Count (140-440) K/mm3 PT (12.2-14.9) Sec. INR (0.87-1.13) APTT (24.2-36.6) Sec. D-Dimer (0-234) ng/mlDDU ABG pH (7.350-7.450) pH Units ABG pO2 (80.0-90.0) mm Hg ABG HCO3 (20.0-26.0) mmol/L ABG O2 Saturation (95.0-99.0) % ABG Base Excess (-2.0-3.0) mmol/L ABG Hemoglobin (14.0-18.0) gm/dl ABG Methemoglobin (0.0-1.5) % Oxyhemoglobin (95.0-99.0) % Potassium (3.6-5.0) mmol/L Chloride (98-107) mmol/L Carbon Dioxide (22-30) mmol/L BUN (9-20) mg/dL Creatinine (0.8-1.3) mg/dL Glucose (75-100) mg/dL POC Glucose 199 H 159 H (70-105) mg/dL Lactic Acid (0.7-2.0) mmol/L Calcium (8.4-10.2) mg/dL Phosphorus (2.5-4.5) mg/dL Magnesium (1.7-2.3) mg/dL Ferritin (30.0-300.0) ng/mL Total Bilirubin (0.1-1.2) mg/dL AST (5-40) units/L ALT (7-56) units/L Lactate Dehydrogenase (91-180) units/L C-Reactive Protein (0.00-1.30) mg/dL Total Protein (6.3-8.2) g/dL Albumin (3.9-5) g/dL Urine WBC (Auto) (0.0-6.0) /HPF Urine Creatinine (0.1-20.0) mg/dL SARS-CoV-2 (PCR) Positive A (Negative) 05/26/22 05/26/22 05/26/22 Range/Units 09:31 10:01 10:55 WBC (4.5-11.0) K/mm3 RBC (3.65-5.03) M/mm3 Hgb (11.8-15.2) gm/dl Hct (35.5-45.6) % MCV (84-94) fl MCH (28-32) pg MCHC (32-34) % RDW (13.2-15.2) % Plt Count (140-440) K/mm3 PT (12.2-14.9) Sec. INR (0.87-1.13) APTT (24.2-36.6) Sec. D-Dimer (0-234) ng/mlDDU ABG pH 7.219 L (7.350-7.450) pH Units ABG pO2 60.3 L (80.0-90.0) mm Hg ABG HCO3 10.7 L (20.0-26.0) mmol/L ABG O2 Saturation 86.2 L (95.0-99.0) % ABG Base Excess -15.5 L (-2.0-3.0) mmol/L ABG Hemoglobin 10.7 L (14.0-18.0) gm/dl ABG Methemoglobin (0.0-1.5) % Oxyhemoglobin 85.1 L (95.0-99.0) % Potassium (3.6-5.0) mmol/L Chloride (98-107) mmol/L Carbon Dioxide (22-30) mmol/L BUN (9-20) mg/dL Creatinine (0.8-1.3) mg/dL Glucose (75-100) mg/dL POC Glucose 158 H 127 H (70-105) mg/dL Lactic Acid (0.7-2.0) mmol/L Calcium (8.4-10.2) mg/dL Phosphorus (2.5-4.5) mg/dL Magnesium (1.7-2.3) mg/dL Ferritin (30.0-300.0) ng/mL Total Bilirubin (0.1-1.2) mg/dL AST (5-40) units/L ALT (7-56) units/L Lactate Dehydrogenase (91-180) units/L C-Reactive Protein (0.00-1.30) mg/dL Total Protein (6.3-8.2) g/dL Albumin (3.9-5) g/dL Urine WBC (Auto) (0.0-6.0) /HPF Urine Creatinine (0.1-20.0) mg/dL SARS-CoV-2 (PCR) (Negative) 05/26/22 05/26/22 05/26/22 Range/Units 11:05 11:12 11:12 WBC (4.5-11.0) K/mm3 RBC (3.65-5.03) M/mm3 Hgb (11.8-15.2) gm/dl Hct (35.5-45.6) % MCV (84-94) fl MCH (28-32) pg MCHC (32-34) % RDW (13.2-15.2) % Plt Count (140-440) K/mm3 PT 29.7 H (12.2-14.9) Sec. INR 2.44 H (0.87-1.13) APTT 135.4 H* (24.2-36.6) Sec. D-Dimer 667.33 H (0-234) ng/mlDDU ABG pH 7.267 L (7.350-7.450) pH Units ABG pO2 (80.0-90.0) mm Hg ABG HCO3 10.2 L (20.0-26.0) mmol/L ABG O2 Saturation (95.0-99.0) % ABG Base Excess -14.9 L (-2.0-3.0) mmol/L ABG Hemoglobin 11.9 L (14.0-18.0) gm/dl ABG Methemoglobin (0.0-1.5) % Oxyhemoglobin 94.3 L (95.0-99.0) % Potassium (3.6-5.0) mmol/L Chloride (98-107) mmol/L Carbon Dioxide 12 L (22-30) mmol/L BUN 45 H (9-20) mg/dL Creatinine 3.0 H (0.8-1.3) mg/dL Glucose 121 H (75-100) mg/dL POC Glucose (70-105) mg/dL Lactic Acid (0.7-2.0) mmol/L Calcium 7.4 L (8.4-10.2) mg/dL Phosphorus 9.00 H D (2.5-4.5) mg/dL Magnesium 3.90 H (1.7-2.3) mg/dL Ferritin (30.0-300.0) ng/mL Total Bilirubin (0.1-1.2) mg/dL AST (5-40) units/L ALT (7-56) units/L Lactate Dehydrogenase (91-180) units/L C-Reactive Protein (0.00-1.30) mg/dL Total Protein (6.3-8.2) g/dL Albumin (3.9-5) g/dL Urine WBC (Auto) (0.0-6.0) /HPF Urine Creatinine (0.1-20.0) mg/dL SARS-CoV-2 (PCR) (Negative) 05/26/22 05/26/22 05/26/22 Range/Units 11:12 11:12 11:12 WBC (4.5-11.0) K/mm3 RBC (3.65-5.03) M/mm3 Hgb (11.8-15.2) gm/dl Hct (35.5-45.6) % MCV (84-94) fl MCH (28-32) pg MCHC (32-34) % RDW (13.2-15.2) % Plt Count (140-440) K/mm3 PT (12.2-14.9) Sec. INR (0.87-1.13) APTT (24.2-36.6) Sec. D-Dimer (0-234) ng/mlDDU ABG pH (7.350-7.450) pH Units ABG pO2 (80.0-90.0) mm Hg ABG HCO3 (20.0-26.0) mmol/L ABG O2 Saturation (95.0-99.0) % ABG Base Excess (-2.0-3.0) mmol/L ABG Hemoglobin (14.0-18.0) gm/dl ABG Methemoglobin (0.0-1.5) % Oxyhemoglobin (95.0-99.0) % Potassium (3.6-5.0) mmol/L Chloride (98-107) mmol/L Carbon Dioxide (22-30) mmol/L BUN (9-20) mg/dL Creatinine (0.8-1.3) mg/dL Glucose (75-100) mg/dL POC Glucose (70-105) mg/dL Lactic Acid (0.7-2.0) mmol/L Calcium (8.4-10.2) mg/dL Phosphorus (2.5-4.5) mg/dL Magnesium (1.7-2.3) mg/dL Ferritin 6884.0 H (30.0-300.0) ng/mL Total Bilirubin (0.1-1.2) mg/dL AST (5-40) units/L ALT (7-56) units/L Lactate Dehydrogenase 639 H (91-180) units/L C-Reactive Protein 20.20 H (0.00-1.30) mg/dL Total Protein (6.3-8.2) g/dL Albumin (3.9-5) g/dL Urine WBC (Auto) (0.0-6.0) /HPF Urine Creatinine (0.1-20.0) mg/dL SARS-CoV-2 (PCR) (Negative) 05/26/22 05/26/22 05/26/22 Range/Units 11:15 12:06 13:04 WBC 4.4 L (4.5-11.0) K/mm3 RBC 3.22 L (3.65-5.03) M/mm3 Hgb 11.0 L (11.8-15.2) gm/dl Hct 34.1 L D (35.5-45.6) % MCV 106 H (84-94) fl MCH 34 H (28-32) pg MCHC (32-34) % RDW 17.2 H (13.2-15.2) % Plt Count 52 L (140-440) K/mm3 PT (12.2-14.9) Sec. INR (0.87-1.13) APTT (24.2-36.6) Sec. D-Dimer (0-234) ng/mlDDU ABG pH (7.350-7.450) pH Units ABG pO2 (80.0-90.0) mm Hg ABG HCO3 (20.0-26.0) mmol/L ABG O2 Saturation (95.0-99.0) % ABG Base Excess (-2.0-3.0) mmol/L ABG Hemoglobin (14.0-18.0) gm/dl ABG Methemoglobin (0.0-1.5) % Oxyhemoglobin (95.0-99.0) % Potassium (3.6-5.0) mmol/L Chloride (98-107) mmol/L Carbon Dioxide (22-30) mmol/L BUN (9-20) mg/dL Creatinine (0.8-1.3) mg/dL Glucose (75-100) mg/dL POC Glucose 135 H 172 H (70-105) mg/dL Lactic Acid (0.7-2.0) mmol/L Calcium (8.4-10.2) mg/dL Phosphorus (2.5-4.5) mg/dL Magnesium (1.7-2.3) mg/dL Ferritin (30.0-300.0) ng/mL Total Bilirubin (0.1-1.2) mg/dL AST (5-40) units/L ALT (7-56) units/L Lactate Dehydrogenase (91-180) units/L C-Reactive Protein (0.00-1.30) mg/dL Total Protein (6.3-8.2) g/dL Albumin (3.9-5) g/dL Urine WBC (Auto) (0.0-6.0) /HPF Urine Creatinine (0.1-20.0) mg/dL SARS-CoV-2 (PCR) (Negative) 05/26/22 05/26/22 05/26/22 Range/Units 16:35 17:08 21:12 WBC (4.5-11.0) K/mm3 RBC (3.65-5.03) M/mm3 Hgb (11.8-15.2) gm/dl Hct (35.5-45.6) % MCV (84-94) fl MCH (28-32) pg MCHC (32-34) % RDW (13.2-15.2) % Plt Count (140-440) K/mm3 PT (12.2-14.9) Sec. INR (0.87-1.13) APTT (24.2-36.6) Sec. D-Dimer (0-234) ng/mlDDU ABG pH (7.350-7.450) pH Units ABG pO2 (80.0-90.0) mm Hg ABG HCO3 (20.0-26.0) mmol/L ABG O2 Saturation (95.0-99.0) % ABG Base Excess (-2.0-3.0) mmol/L ABG Hemoglobin (14.0-18.0) gm/dl ABG Methemoglobin (0.0-1.5) % Oxyhemoglobin (95.0-99.0) % Potassium 6.5 H* D (3.6-5.0) mmol/L Chloride (98-107) mmol/L Carbon Dioxide 11 L 8 L* (22-30) mmol/L BUN 46 H 46 H (9-20) mg/dL Creatinine 3.0 H 3.0 H (0.8-1.3) mg/dL Glucose (75-100) mg/dL POC Glucose (70-105) mg/dL Lactic Acid 15.20 H* (0.7-2.0) mmol/L Calcium 7.0 L 6.7 L (8.4-10.2) mg/dL Phosphorus (2.5-4.5) mg/dL Magnesium (1.7-2.3) mg/dL Ferritin (30.0-300.0) ng/mL Total Bilirubin 1.70 H (0.1-1.2) mg/dL AST 3262 H (5-40) units/L ALT 1502 H (7-56) units/L Lactate Dehydrogenase (91-180) units/L C-Reactive Protein (0.00-1.30) mg/dL Total Protein 3.3 L D (6.3-8.2) g/dL Albumin 1.8 L (3.9-5) g/dL Urine WBC (Auto) (0.0-6.0) /HPF Urine Creatinine (0.1-20.0) mg/dL SARS-CoV-2 (PCR) (Negative) 05/26/22 05/26/22 05/26/22 Range/Units 22:35 Unknown Unknown WBC (4.5-11.0) K/mm3 RBC (3.65-5.03) M/mm3 Hgb (11.8-15.2) gm/dl Hct (35.5-45.6) % MCV (84-94) fl MCH (28-32) pg MCHC (32-34) % RDW (13.2-15.2) % Plt Count (140-440) K/mm3 PT (12.2-14.9) Sec. INR (0.87-1.13) APTT (24.2-36.6) Sec. D-Dimer (0-234) ng/mlDDU ABG pH (7.350-7.450) pH Units ABG pO2 (80.0-90.0) mm Hg ABG HCO3 (20.0-26.0) mmol/L ABG O2 Saturation (95.0-99.0) % ABG Base Excess (-2.0-3.0) mmol/L ABG Hemoglobin (14.0-18.0) gm/dl ABG Methemoglobin (0.0-1.5) % Oxyhemoglobin (95.0-99.0) % Potassium (3.6-5.0) mmol/L Chloride (98-107) mmol/L Carbon Dioxide (22-30) mmol/L BUN (9-20) mg/dL Creatinine (0.8-1.3) mg/dL Glucose (75-100) mg/dL POC Glucose (70-105) mg/dL Lactic Acid 22.10 H* (0.7-2.0) mmol/L Calcium (8.4-10.2) mg/dL Phosphorus (2.5-4.5) mg/dL Magnesium (1.7-2.3) mg/dL Ferritin (30.0-300.0) ng/mL Total Bilirubin (0.1-1.2) mg/dL AST (5-40) units/L ALT (7-56) units/L Lactate Dehydrogenase (91-180) units/L C-Reactive Protein (0.00-1.30) mg/dL Total Protein (6.3-8.2) g/dL Albumin (3.9-5) g/dL Urine WBC (Auto) 29.0 H (0.0-6.0) /HPF Urine Creatinine 40.7 H (0.1-20.0) mg/dL SARS-CoV-2 (PCR) (Negative) 05/27/22 05/27/22 05/27/22 Range/Units 00:00 00:00 00:00 WBC (4.5-11.0) K/mm3 RBC (3.65-5.03) M/mm3 Hgb (11.8-15.2) gm/dl Hct (35.5-45.6) % MCV (84-94) fl MCH (28-32) pg MCHC (32-34) % RDW (13.2-15.2) % Plt Count (140-440) K/mm3 PT (12.2-14.9) Sec. INR (0.87-1.13) APTT (24.2-36.6) Sec. D-Dimer (0-234) ng/mlDDU ABG pH (7.350-7.450) pH Units ABG pO2 (80.0-90.0) mm Hg ABG HCO3 (20.0-26.0) mmol/L ABG O2 Saturation (95.0-99.0) % ABG Base Excess (-2.0-3.0) mmol/L ABG Hemoglobin (14.0-18.0) gm/dl ABG Methemoglobin (0.0-1.5) % Oxyhemoglobin (95.0-99.0) % Potassium 6.1 H* (3.6-5.0) mmol/L Chloride (98-107) mmol/L Carbon Dioxide 7 L* (22-30) mmol/L BUN 48 H (9-20) mg/dL Creatinine 3.0 H (0.8-1.3) mg/dL Glucose 173 H (75-100) mg/dL POC Glucose (70-105) mg/dL Lactic Acid 20.50 H* (0.7-2.0) mmol/L Calcium 7.2 L (8.4-10.2) mg/dL Phosphorus 14.30 H D (2.5-4.5) mg/dL Magnesium 3.90 H (1.7-2.3) mg/dL Ferritin (30.0-300.0) ng/mL Total Bilirubin (0.1-1.2) mg/dL AST (5-40) units/L ALT (7-56) units/L Lactate Dehydrogenase (91-180) units/L C-Reactive Protein (0.00-1.30) mg/dL Total Protein (6.3-8.2) g/dL Albumin (3.9-5) g/dL Urine WBC (Auto) (0.0-6.0) /HPF Urine Creatinine (0.1-20.0) mg/dL SARS-CoV-2 (PCR) (Negative) 05/27/22 05/27/22 05/27/22 Range/Units 01:20 03:30 03:30 WBC (4.5-11.0) K/mm3 RBC 2.71 L (3.65-5.03) M/mm3 Hgb 9.4 L (11.8-15.2) gm/dl Hct 30.5 L (35.5-45.6) % MCV 113 H (84-94) fl MCH 35 H (28-32) pg MCHC 31 L (32-34) % RDW 18.4 H (13.2-15.2) % Plt Count 16 L* (140-440) K/mm3 PT (12.2-14.9) Sec. INR (0.87-1.13) APTT (24.2-36.6) Sec. D-Dimer (0-234) ng/mlDDU ABG pH 7.192 L* (7.350-7.450) pH Units ABG pO2 179.0 H (80.0-90.0) mm Hg ABG HCO3 9.1 L (20.0-26.0) mmol/L ABG O2 Saturation (95.0-99.0) % ABG Base Excess -17.4 L (-2.0-3.0) mmol/L ABG Hemoglobin 9.1 L (14.0-18.0) gm/dl ABG Methemoglobin (0.0-1.5) % Oxyhemoglobin (95.0-99.0) % Potassium (3.6-5.0) mmol/L Chloride (98-107) mmol/L Carbon Dioxide (22-30) mmol/L BUN (9-20) mg/dL Creatinine (0.8-1.3) mg/dL Glucose (75-100) mg/dL POC Glucose (70-105) mg/dL Lactic Acid 26.60 H* (0.7-2.0) mmol/L Calcium (8.4-10.2) mg/dL Phosphorus (2.5-4.5) mg/dL Magnesium (1.7-2.3) mg/dL Ferritin (30.0-300.0) ng/mL Total Bilirubin (0.1-1.2) mg/dL AST (5-40) units/L ALT (7-56) units/L Lactate Dehydrogenase (91-180) units/L C-Reactive Protein (0.00-1.30) mg/dL Total Protein (6.3-8.2) g/dL Albumin (3.9-5) g/dL Urine WBC (Auto) (0.0-6.0) /HPF Urine Creatinine (0.1-20.0) mg/dL SARS-CoV-2 (PCR) (Negative) 05/27/22 05/27/22 05/27/22 Range/Units 03:30 08:02 09:30 WBC (4.5-11.0) K/mm3 RBC (3.65-5.03) M/mm3 Hgb (11.8-15.2) gm/dl Hct (35.5-45.6) % MCV (84-94) fl MCH (28-32) pg MCHC (32-34) % RDW (13.2-15.2) % Plt Count (140-440) K/mm3 PT (12.2-14.9) Sec. INR (0.87-1.13) APTT (24.2-36.6) Sec. D-Dimer (0-234) ng/mlDDU ABG pH 7.062 L* (7.350-7.450) pH Units ABG pO2 145.2 H (80.0-90.0) mm Hg ABG HCO3 5.7 L (20.0-26.0) mmol/L ABG O2 Saturation (95.0-99.0) % ABG Base Excess -22.5 L (-2.0-3.0) mmol/L ABG Hemoglobin 5.4 L (14.0-18.0) gm/dl ABG Methemoglobin 4.8 H (0.0-1.5) % Oxyhemoglobin 92.2 L (95.0-99.0) % Potassium 6.6 H* (3.6-5.0) mmol/L Chloride 96.1 L (98-107) mmol/L Carbon Dioxide 6 L* (22-30) mmol/L BUN 48 H (9-20) mg/dL Creatinine 3.2 H (0.8-1.3) mg/dL Glucose 159 H (75-100) mg/dL POC Glucose 165 H (70-105) mg/dL Lactic Acid (0.7-2.0) mmol/L Calcium 6.8 L (8.4-10.2) mg/dL Phosphorus (2.5-4.5) mg/dL Magnesium (1.7-2.3) mg/dL Ferritin (30.0-300.0) ng/mL Total Bilirubin (0.1-1.2) mg/dL AST (5-40) units/L ALT (7-56) units/L Lactate Dehydrogenase (91-180) units/L C-Reactive Protein (0.00-1.30) mg/dL Total Protein (6.3-8.2) g/dL Albumin (3.9-5) g/dL Urine WBC (Auto) (0.0-6.0) /HPF Urine Creatinine (0.1-20.0) mg/dL SARS-CoV-2 (PCR) (Negative)
[2022-05-27] MEDS ORDERED: PANTOPRAZOLE 40 MG INJ IV SCH (10:00)
[2022-05-27] MEDS ORDERED: SODIUM POLYSTYRENE 15 GM/60 ML ORAL LIQD PR SCH (10:00)
--- NOTE | 2022-05-27 11:16 | Death Note ---
Note Date of : 05/27/22 Time of : 11:00 Time Pronounced: 11:00 - Preliminary Cause of (problem) (1) Cardiopulmonary arrest Preliminary cause of (2) Refractory shock Preliminary cause of (3) Respiratory failure with hypoxia Preliminary cause of (4) COVID-19 Preliminary cause of (5) Sepsis Qualifiers: Sepsis type: sepsis due to unspecified organism Sepsis acute organ dysfunction status: with acute organ dysfunction Severe sepsis acute organ dysfunction type: acute respiratory failure Acute respiratory failure type: with hypoxia Severe sepsis shock status: unspecified Qualified Code(s): A41.9 - Sepsis, unspecified organism; R65.20 - Severe sepsis without septic shock; J96.01 - Acute respiratory failure with hypoxia Preliminary cause of
--- NOTE | 2022-05-27 11:22 | Death Summary ---
Summary - Providers Date of service: 05/27/22 Consults: 05/25/22 Consult to Cardiac Rehabilitation [CONS] Routine Reason For Exam: Phase I 05/25/22 15:46 Consult to Cardiology [CONS] Stat Consulting Provider: JOSE REBOLLEDO Reason For Exam: Chest pain 05/25/22 21:47 Consult to Dietitian/Nutrition [CONS] Routine Physician Instructions: Reason For Exam: Reason for Consult: Diet education Consult to Dietitian/Nutrition [CONS] Routine Physician Instructions: Reason For Exam: DKA Reason for Consult: Nutrition Recommendations Reason for Consult: Diet education Consult to Physician [CONS] Routine Comment: Dr. Sloan spoke with Dr. Ybarra @ [phone] Consulting Provider: EDILSON RUFF Physician Instructions: Reason For Exam: Chest Pain, DKA 05/26/22 10:48 Consult to Physician [CONS] Routine Comment: left mess. answ. serv./ lillie Consulting Provider: KEN YBARRA Physician Instructions: Reason For Exam: Septic Shock, Covid 19 Infection 05/26/22 12:08 Consult to Physician [CONS] Routine Comment: called answ. serv./ lillie Consulting Provider: DAKOTA YANG Physician Instructions: Reason For Exam: MOIZ Attending: SILVANA CRUZ MD - summary Date of admission: 05/25/22 21:47 Date of : 05/27/22 Disposition: This is a 77-year-old male with known past medical history of DM, osteomyeloma ([place] [facility] [place]), chronic right femoral artery occlusion, was on AC at home brought in by EMS today with complaints of chest pain about 3 hours prior to arrival in the emergency room. Family indicates that patient had fecal incontinence and became unresponsive. EMS had noted that there were concerns for ST elevation TX on the inferior leads. EKG was said to have been discussed with the on-call director of corporate strategy and a repeat EKG did not show STEMI, so there was no indication cardiac interevention at that time. Patient was initially admitted for chest pain, metabolic acidosis, and DKA. DKA protocol, chest pain protocol, heparin drip were initiated, and cardiology was consulted. While in the ED, patient decompensated. Patient became unresponsive and hypotensive requiring multiple pressors, was intubated and placed on ventilatory support. Patient was transferred to the ICU and CCM was consulted for further management. In the ICU, patient remains encephalopathic and on the vent. On 3 pressors, hypotermic, and leukopenic, with severe metabolic acidosis. COVID PCR came back positive. Patient went into shock, Cardiogenic versus Septic. Patient was pancultured, sodium bcarb drip, and empiric IV antibiotics were initiated. ID was also consulted for further evaluation and recommendations. Acute thrombocytopenia and supratherapeutic INR was also noted, heparin drip was held. Patient also went into acute kidney injury with anuria, Nephrology was also consulted. 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 Code were treated per ACLS protocol and ROSC were achived. Thorough discussion with patient's and three daughter by the attending and CCM. Discussing patient's diagnoses, conditions, and overall poor diagnosis. They verbalized understanding of the info provided and patient's voiced that her Cardiology is also following, 2D echo pending, awaiting final recommendations. Patient remains on insulin gtt per DKA protocol, will transition to subq insulin once BG level improved. Renal function continue to worsen, continue current IVF hydration. Nephrology consulted. Medical record requested from [facility] and PCP. Most of the history was obtained from the ER staff as family members were not available. Patient unable to give any history at this time as he is obtunded. Further work-up reveals that patient is in DKA. He also had hypokalemia for which she has received IV potassium. Patient being admitted into the intensive care unit on insulin drip and IV fluid. s/p cardiopulmonary arrest x6 overnight and early hours of this morning. remains critically ill, with 4 pressor shock Hyperkalemia, acute renal failure, ARDS, thrombocytopenia, resp failure, COVID, cardiomyopathy EF 15% and encephalopathy Poor prognosis and high mortality. Discussed this with the patient's and 3 daughter. They understand the gravity of the situation. All their questions were answered. At this time in the event of cardiopulmonary arrest, they do not want resuscitation. They however do not want to withdraw care. They have asked for permission to see him, and I have granted permission for them to visit via the window. They understand the inherent risk of exposure. My discussions were in the presence of the NEWSP[employer]ER [employer]RIER-Isa Dickerson This is a 77-year-old male with known past medical history of DM, osteomyeloma (being treated at [facility]), chronic right femoral artery occlusion, was on AC at home initially admitted for chest pain, metabolic acidosis, and DKA. Patient became unresponsive while in the ED requiring ventilatory support and now on multiple pressors. Called to the bedside to pronounce the patient. On examination patient remains on the ventilator with chest rise on clear lungs auscultation otherwise nonresponsive to noxious or verbal stimuli. Pupils are fixed and dilated. No cardiac sounds auscultated. No neurological evidence of life noted. Patient pronounced at 11 AM family notified in the waiting room with Condolence expressed. Original Note: Note Date of : 05/27/22 Time of : 11:00 Time Pronounced: 11:00 Hospital Course to Date: 05/26: Patient remains encephalopathic and on the vent. Remains on 3 pressors, hypotermic, and leukopenic, still with severe metabolic acidosis. COVID PRC also came back positive. Will panculture, sodium bcarb gtt, and empiric IV antibiotics were initiated. CRP and procal pending. ID consulted. Heparin gtt on hold due to worsen thrombocytopenia and elevated INR, no s/s of any active bleeding. Will continue to trend CBC and coags. Cardiology is also following, 2D echo pending, awaiting final recommendations. Patient remains on insulin gtt per DKA protocol, will transition to subq insulin once BG level improved. Renal function continue to worsen, continue current IVF hydration. Nephrology consulted. Medical record requested from [facility] and PCP. Assessment and Plan #Shock- Cardiogenic vs Septic #NSTEMI type 2 - Karena in by EMS for CP, with elevated troponin X3 - Per EMS initial EKG showed ST elevation TX on the inferior leads. - Repeat EKG in the ED reveal BBB, but significant ST changes - Cardiology was consulted, appreciated recommendations - No plan for any intervention at this time - NSTEMI most likely type 2 secondary to renal failure - Patient is now on 3 pressors and Bcarb gtt - 2D echo pending - Continue blood pressure monitor per protocol - Titrate pressors for MAP above 65 - Heparin gtt held due to worsen thrombocytopenia and elevated INR #Acute Hypoxic Respiratory Failure #COVID 19 Infection - Intubated in the ED on 05/25 - Vent setting: PRVC-60%,6,30,500 - AM ABG noted - COVID PCR positive - CCM consulted, appreciate recommendations - IV abx and IV steroids initiated - VAP bundle addressed - Aspiration precaution HOB above 30 - Daily SBT and SAT trials as tolerated - Daily ABG and CXR - Continue SPO2 monitoring for SPO2 goal above 92% #Septic Shock #Possible Bilateral Pneumonia #COVID 19 Infection #Urinary Tract Infection(UTI) - With hypothermia, leukopenia, severe metabolic acidosis, requiring multiple pressors - Imaging with bibasilar atelectesis/opacities - COVID PCR is positive; UA with elevated wbcs, cultures pending - CRP and Procal pending - IV steroids and IV Abx initiated - ID consulted - F/U on cultures - Daily CBC monitor #Acute Metabolic Encephalopathy - Probably secondary to above - CT head/brain reveal encephalomalacia but no evidence of any acute intracranial hemorrhage - Patient is on the vent, awake but no following commands - Treat underlying cause, as describe above - Avoid benzodiazepine to reduce the possibility of delirium - PRN Analgesia for CPOT greater than 3 - Maintenance of sleep-wake cycle #Acute Kidney Injury (MOIZ) most likely ATN #Hypokalemia #Metabolic Acidosis - secondary to above - Baseline renal function is unknown, - Scr. as high as 2.8 this am and oligoric - S/p IV contrast on 05/25 - Currently on [place] gtt - Nephrology consulted - Strict intake and output - Avoid nephrotoxic medications; Renally dose medications - Calderon in place, with low UOP - Continue IVF for now - Monitor and replace electrolytes as needed #Chronic Right Femoral Artery Occlusion - Right femoral artery occlusion noted on CTA abd/pelvis - Per patient's this is chronic, patient had multiple vascular procedure in the past with no success - Patient was placed on chronic AC, probably Eliquis. Family to bring in home medications list - Heparin gtt held due to worsen thrombocytopenia and elevated INR - Will continue to monitor #Thrombocytopenia #Elevated INR - Dropped in plt and INR above 5 this am - H&H stable, no s/s of any active bleeding - Heparin gtt held - Continue to trend CBC and coags - Transfuse for plt less than 20 and hgb less than 7 #Diabetic Ketoacidosis(DKA) - On DKA protocol - Additional IVF bolus administered - Continue insulin gtt and IVF resuscitation per protocol - Monitor and replace electrolytes as needed - Monitor anion gap, serial Labs ordered - Will probably transition to subQ insulin later on today #Osteomyeloma - Chronic, diagnosed over 2 years - Currently receiving treatment at [facility] - Records requested from [facility] and PCP
[2022-05-27 11:27] VITALS: BP 44/26
--- NOTE | 2022-05-27 18:07 | Electrocardiograph Report ---
[facility] Test Date: 2022-05-26 Test Time: 12:59:52 Pat Name: LEDA KHAN Department: Room: A263 1 Gender: M Rn Access: RICHARD : 1945 Requested By: YESSY ALEXANDER Order Number: [id number] Reading MD: Mihaela Rizvi Measurements Intervals [place] Rate: 72 P: 61 VA: 144 QRS: -78 QRSD: 130 T: 31 QT: 438 QTc: 479 Interpretive Statements Sinus rhythm Right bundle branch block Inferior infarct, old Compared to ECG 05/25/2022 15:32:37 No significant change Electronically Signed On 05-27-2022 18:07:23 EDT by Mihaela Rizvi
== END 2022-05-27 14:58 | DRG 871 ==
LOC: ED 15:27 → CC1 21:47
PROVIDERS: ADMIT Internal Medicine Geriatric Medicine; ATTEND Internal Medicine
PROC: 4A033R1 Measurement of Arterial Saturation, Peripheral, Percutaneous Approach (ICD-10-PCS; 2022-05-25)
PROC: 5A1945Z Respiratory Ventilation, 24-96 Consecutive Hours (ICD-10-PCS; principal; 2022-05-27)
PROC: 0BH17EZ Insertion of Endotracheal Airway into Trachea, Via Natural or Artificial Opening (ICD-10-PCS; 2022-05-27)
PROC: 04HY32Z Insertion of Monitoring Device into Lower Artery, Percutaneous Approach (ICD-10-PCS; 2022-05-27)
PROC: 5A12012 Performance of Cardiac Output, Single, Manual (ICD-10-PCS; 2022-05-27)
DX: A41.9 Sepsis, unspecified organism (principal); E11.10 Type 2 diabetes mellitus with ketoacidosis without coma; J96.01 Acute respiratory failure with hypoxia; R65.21 Severe sepsis with septic shock; U07.1 COVID-19; G93.41 Metabolic encephalopathy; N17.0 Acute kidney failure with tubular necrosis; I21.A1 Myocardial infarction type 2; J12.82 Pneumonia due to coronavirus disease 2019; D68.9 Coagulation defect, unspecified; N39.0 Urinary tract infection, site not specified; I42.9 Cardiomyopathy, unspecified; I77.1 Stricture of artery; E87.6 Hypokalemia; R57.0 Cardiogenic shock; E83.41 Hypermagnesemia; E83.39 Other disorders of phosphorus metabolism; D69.6 Thrombocytopenia, unspecified; I46.9 Cardiac arrest, cause unspecified
CPT/HCPCS: 36415; 36600; 70450; 71045; 71275; 74018; 74174; 80048; 80053; 80061; 81001; 82010; 82140; 82570; 82728; 82803; 82962; 83615; 83735; 84100; 84145; 84300; 84484; 85007; 85014; 85018; 85025; 85027; 85049; 85379; 85384; 85520; 85610; 85730; 86140; 86850; 86900; 86901; 87040; 87070; 87086; 87205; 92950; 93005; 93306; 94002; 94003; G0378; J1815; J2354; J3480; J3490; Q9967; C8929; J0171; J0330; J0456; J0461; J0696; J1100; J1250; J1265; J1644; J2785; J7030; J7040; J7050; J7070; J7120; U0003